=== PATIENT | male | born 1975 | race Caucasian/White ===

== ENCOUNTER 2017-09-03 08:29 | Outpatient (RCR) | payer OTHER, SELFPAY ==
--- NOTE | 2017-09-03 16:04 | HP.PTEVAL_ITS ---
Patient's Visit Information SAMRA GARCÍA is a 41 year old M referred to Physical Therapy by DO JANE Johnson with a diagnosis of L lateral meniscus tear. Date of Evaluation: 09/03/17 Physical Therapist: Tai Guerrero - Visit Plan Frequency: 1x/Week Duration: 4 Weeks Plan: Pt. given LLE strengthening including hip stabilizers to reduce stress applied to L knee with recreational activities. Pt. educated in changing knee positioning to reduce stress at knee with work activities. Pt. to complete on own as he is independent with HEP. Pt. to follow up with PT in 2-3 weeks if needed for progression exercsies or if not progressing with knee pain. - Subjective Subjective: Pt. is here for his initial evaluation with diagnosis of L lateral meniscal tear. He is a plesant 41 y.o. male who reports having L knee pain for ~ 1 year without a mechanism of injury. He was snow boarding and towards the end of the day it was really bad. He reports on and off pain for the last year. 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 Increases pain: deep squating, standing for long periods, running. Decreases pain- rest. Pt. has not trial ice or heat. He did have an xray that looked basically normal with some mild medial tibial femoral degenerative changes. He reports pain basically at lateral anterior joint line. He has not had an MRI at this point. He denies N/T in either LE, no occurance of his knee giving out or locking up. He does report popping at lateral aspect of his knee. He is hopeful to decrease symptoms in order to get back to running and his job with increased tolerance. - Pain Lateral Left knee Pain Intensity (Out of 10): 1 Pain Intensity Range: 0, 8 - Objective POSTURE: pt. has slight genu valgum positioning bilaterally. Pt. has normal foot positioning. He has normal RANDAL with equal wt. shifting. PALPATION: Pt. has pain at anterior/lateral joint line. He has no pain at fibular head or along IT band. He has no medial joint line pain or LCL pain. No popliteal fossa pain. No visible signs of edema or swelling. No temp to touch. NEUROLOGICAL: Pt. has normal sensation to light and sharp touch. Pt. has 2+ bilateral achilles and patellar DTR. Pt. is able to rise on heels and toes without issues or LOB, no signs of weakness. ROM: R knee 0-0-140deg NE. L knee 0-0-138deg, popping noted at ~30deg of flexion and pain at end range flexion. Pt. has normal HS length bilaterally and normal ankle and hip ROM no pain. MMT: Pt. has 5/5 LE strength bilaterally except- L hip ER/IR 4+/5, and L glute med 4+/5, hip ext 4+/5. GAIT: Pt. has normal gait pattern with TKE no pain noted this date. STAIRS: Pt. has normal recipriocal pattern, slight increase in lateral knee pain with descending. - Special Tests L Knee Miky - Meniscus: Positive L Knee Apley - Meniscus: Positive L Knee Disco Test - Meniscus: Positive L Knee Marilin - ACL: Negative L Knee Anterior Drawer - ACL: Negative L Knee Posterior Drawer - PCL: Negative L Knee Valgus - MCL: Negative L Knee Varus - LCL: Negative L Knee Patellar Apprehension - PFS: Negative Comments: Apley's postive with increased grind at lateral aspect, no pain at medial - Goals Goal 1:: Pt. to be I with HEP. Goal Time Frame: 2-4 Weeks Goal 2:: Pt. to have no pain with running and all recreational activties. Goal Time Frame: 2-4 Weeks Goal 3:: Pt. to complete all work activities withotu increase in L knee pain. Goal Time Frame: 2-4 Weeks - Rehabilitation Potential Physical Therapy Diagnosis: Pt. has signs and symptoms of L lateral meniscus tear. He has minimal weakness noted throughout knee and hip musculature. Pt. does have + testing with all grinding on the meniscus and with WBing pressure to lateral meniscus. He would benefit from PT to increase stability of hip IR/ER , and gradual progression to functional strengthening. Rehabilitation Potential: Fair - Anticipated Interventions Patient/Client Instruction: Educate patient on: Condition, Plan of Care, Risk Factors, Benefits of Fitness Program For the Purpose of:: To foster healthy habits, To facilitate caregiver knowledge , To improve self management, To prevent re-injury, To improve ability to perform tasks related to life management, To improve tolerance to ADL's Therapeutic Exercise to Include: Strength training, Power training, Endurance training, Balance training, Postural training, Passive ROM, Active ROM For the Purpose of:: To decrease pain, To improve nutrient delivery to tissue, To increase oxygenation perfusion, To improve muscle performance and motor function, To improve ability to perform ADL's, To increase tolerance to activity /condition/position, To improve performance and independence with ADL's, To decrease level of supervision to perform tasks, To improve health of tissue Thank you for the opportunity to evaluate your patient. For Medicare and Medicare HMO plans, please review the plan of care and approve it. It will need to be FAXED BACK to us at [phone] for Medicare purposes. Please let me know if there are questions or concerns regarding this plan of care. Physician Signature: Date:
--- NOTE | 2018-03-16 19:13 | HP.PTDCNRP_ITS ---
HP - Discharge Summary (1) - Patient Information SAMRA GARCÍA was seen in my office for initial evaluation on 09/03/17. The following Plan of Care was established for this patient: Initial Frequency: 1x/Week Initial Duration: 4 Weeks - Anticipated Interventions Patient/Client Instruction: Educate patient on: Condition, Plan of Care, Risk Factors, Benefits of Fitness Program For the Purpose of:: To foster healthy habits, To facilitate caregiver knowledge , To improve self management, To prevent re-injury, To improve ability to perform tasks related to life management, To improve tolerance to ADL's Therapeutic Exercise to Include: Strength training, Power training, Endurance training, Balance training, Postural training, Passive ROM, Active ROM For the Purpose of:: To decrease pain, To improve nutrient delivery to tissue, To increase oxygenation perfusion, To improve muscle performance and motor function, To improve ability to perform ADL's, To increase tolerance to activity /condition/position, To improve performance and independence with ADL's, To decrease level of supervision to perform tasks, To improve health of tissue This patient was last seen in our office 09/03/17. Pertinent comments regarding their Physical therapy will appear below: Pt. was seen for his L lateral meniscal tear. Pt. was given exercises to work on independently. Pt. wa to follow up with PT if needed. Pt. has yet to be back to PT and will be DC at this point in time. At this point I will be discontinuing this patient from physical therapy. I would be happy to see this patient again in the future if found appropriate by the physician. Thank you! Tai Guerrero
== END 2017-09-03 19:00 | disposition home or self-care (01) ==
LOC: PT 08:29
PROVIDERS: Visit Provider Orthopaedic Surgery
DX: S83.282D Other tear of lateral meniscus, current injury, left knee, subsequent encounter (principal)
CPT/HCPCS: 97110; 97162

== ENCOUNTER → 2017-10-18 13:10 | Outpatient (CLI) | payer OTHER, SELFPAY ==
--- NOTE | 2017-10-18 13:12 | MRI_ITS ---
STUDY: MRI LEFT KNEE REASON FOR EXAM: Left knee pain and stiffness for about one year, no specific injury. TECHNIQUE: Standardized fat and water weighted pulse sequences were obtained in all 3 orthogonal planes. COMPARISON: Radiographs 08/26/2017. FINDINGS: Normal medial meniscus. Normal hyaline cartilage of the medial femorotibial compartment. Normal medial femoral condyle and tibial plateau. Normal medial collateral ligamentous complex (MCL). Normal distal semimembranosus, gracilis and semitendinosus tendons. There is a small horizontal/oblique tear of the inferior articular surface of the body of the lateral meniscus (proton density coronal images 13, 14) with a parameniscal cyst (T2 coronal images 12-18). Normal hyaline cartilage of the lateral femorotibial compartment. Normal lateral femoral condyle and tibial plateau. Normal proximal tibiofibular articulation. Normal lateral collateral (fibular) ligament. Normal popliteus tendon. Normal biceps femoris tendon. Normal anterior cruciate ligament (ACL). Normal posterior cruciate ligament (PCL). Normal congruent patellofemoral articulation. Normal hyaline cartilage of the patellofemoral compartment. Normal medial and lateral patellar retinaculum. Normal visualized quadriceps tendon. Normal patellar tendon. Normal Hoffa's fat pad. There is no joint effusion. The soft tissues are unremarkable. The otherwise visualized osseous structures are unremarkable. MRI/Lower Ext Joint Only (Routine) IMPRESSION: Small lateral meniscal tear with parameniscal cyst. Electronically Signed: Andrews Wu MD at 14:28 EST Tel , Service support ,
== END ==
PROVIDERS: Visit Provider Orthopaedic Surgery
DX: S83.282D Other tear of lateral meniscus, current injury, left knee, subsequent encounter (principal); X58.XXXD Exposure to other specified factors, subsequent encounter
CPT/HCPCS: 73721

== ENCOUNTER → 2018-03-18 08:20 | Outpatient (CLI) | payer OTHER, SELFPAY ==
[2018-03-18 12:17] LABS: Absolute Lymphocyte Count 1.72 X10^3/ul (0.83-4.51); Absolute Neutrophil Count 2.6 X10^3/uL (2.0-7.7); Basophil# 0.02 X10^3/uL; Basophil% 0.4 % (0-1); Eosinophil# 0.18 X10^3/uL; Eosinophils% 3.7 % (0-5); Hematocrit 44.3 % (40-54); Hemoglobin 14.8 g/dl (13.0-16.5); Lymphocyte # 1.72 X10^3/ul (4.0); Lymphocyte % 35.3 % (19-41); Mean Corp Hgb Conc 33.4 g/gl (32-36); Mean Corpuscular Hgb 28.9 pg (27.0-32.0); Mean Corpuscular Volume 86.5 fL (80-94); Mean Platelet Vol. 10.2 fl (6.2-12.0); Monocyte# 0.35 X10^3/uL; Monocyte% 7.2 % (0-10); Neutrophil % 53.4 % (47-70); Platelet Count 179 K/mm3 (150-450); RBC Distribution Width SD 41.5 fl (35.1-43.9); Red Blood Count 5.12 M/mm3 (4.6-6.2); White Blood Count 4.9 K/mm3 (4.4-11.0)
[2018-03-18 12:25] LABS: POSITIVE COUNT NO; POSITIVE DIFFERENTIAL NO; POSITIVE MORPHOLOGY NO; Vitamin B12 406 pg/mL (211-911)
[2018-03-18 12:35] LABS: ALB/GLOB Ratio 1.2 RATIO (0.9-2.4); AST(SGOT) 24 U/L (15-37); Alanine Aminotransfer ALT/SGPT 35 U/L (16-61); Albumin, Serum 4.1 g/dL (3.2-5.0); Alkaline Phosphatase 75 U/L (45-117); Anion Gap 10 (5-15); BUN 17 mg/dL (7-18); BUN/Creat Ratio 15.5 RATIO (10-20); Chloride 105 mmol/L (98-107); EST Glomerular Filtration Rate 79 mL/min (>60); Est Glom Filt Rate - Afr Amer 95 mL/min (>60); Globulin 3.4 g/dL (2.2-4.2); Glucose 83 mg/dL (74-106); Potassium 4.1 mmol/L (3.5-5.1); Protein, Total 7.5 g/dL (6.4-8.2); Sodium Level 143 mmol/L (136-145); T4 Free Direct 0.81 ng/dL (0.76-1.46); Thyroid Stim Hormone (TSH) 2.27 uIU/mL (0.358-3.74)
== END ==
PROVIDERS: Family Provider Family Medicine; PCP Family Medicine; Visit Provider Family Medicine
DX: R20.2 Paresthesia of skin (principal); R03.0 Elevated blood-pressure reading, without diagnosis of hypertension; F41.8 Other specified anxiety disorders
CPT/HCPCS: 36415; 80053; 82607; 84439; 84443; 85025

== ENCOUNTER 2018-04-06 11:46 | Emergency (ER) | payer OTHER, SELFPAY ==
[2018-04-06 11:47] VITALS: BP 136/88; PULSE 84; RESP 18; TEMP 36.4; O2SAT 97; BMI 26.4
--- NOTE | 2018-04-06 11:57 | ED.VISSUMM ---
- ER Visit Summary Date of Service: 04/06/18 Chief Complaint: Injury right index finger History of Present Illness: The patient is a 42 M who is right-hand dominant presents with injury to right index finger. This occurred at work. He states his to be self-pay. He denies any paresthesia, anesthesia motors. Tetanus unknown. He has no sniffing a past medical history. He is a non-smoker. Physical Examination: Vitals are unremarkable. Blood pressure slightly elevated 136/88. Patient has evidence of trauma distal right index finger radial side. This is distal to the DIP joint. There is loss of tissue and devitalized tissue. The extensor in the side tendon is intact. The flexor digitorum superficialis and flexor digitorum profundus are intact. Sensations intact. There is no subungual hematoma. Capillary refill is normal. Test Results: None Emergency Department Course and Treatment: Wound care tetanus immunization/booster Treatment Plan: Outpatient follow-up with his PCP since this is not cleaned on Worker's Comp. and appropriate home-going instructions Disposition: Discharged home Impression: 1 x 2 cm skin avulsion distal right index finger radial side initial encounter This note was generated with [employer] dictation software. It may contain incorrect words, spelling, and punctuation that were not noted in review of the chart prior to signing ED Disposition - Plan for ED Patient: Disposition: Home or Assisted Living Chief Complaint: Laceration Instructions: ED Avulsion Dermal Referrals: Mann Chadwick MD [Primary Care Provider] - 2 Days for wound check
[2018-04-06] MEDS: Diphth,Pertuss(Acell),Tet Vac 0.5 ML Vial IM (12:01)
[2018-04-06 12:17] VITALS: BP 136/88; PULSE 74; RESP 18
== END 2018-04-06 12:19 | disposition home or self-care (01) ==
PROVIDERS: Emergency Provider Emergency Medicine; Family Provider Family Medicine; PCP Family Medicine
DX: S61.200A Unspecified open wound of right index finger without damage to nail, initial encounter (principal); F32.9 Major depressive disorder, single episode, unspecified; Z79.899 Other long term (current) drug therapy
CPT/HCPCS: 90471; 90715; 99283

== ENCOUNTER 2018-07-20 08:17 | Day surgery (SDC) | payer OTHER, SELFPAY ==
[2018-07-20] VITALS (7 sets, daily range): BP systolic 129–140; BP diastolic 74–92; PULSE 55–82; RESP 16–18; TEMP 36.1–36.9; O2SAT 94–100; BMI 26.6
[2018-07-20] MEDS: Cefazolin 2 GM in 0.9% Normal Saline 100 ML IV (10:15)
[2018-07-20] MEDS: Bupiv/Epi 0.5% Mpf 30 ML Vial (11:29)
[2018-07-20] MEDS: Mupirocin Ointment 22gm Tube 1 APPLIC (11:30)
--- NOTE | 2018-07-20 11:49 | PCM.DC.ORTHO ---
Discharge Diet: No Restrictions - ttwb right leg for 6 weeks, 0-30 rom of knee while seated, ankle pumps, ice , elevate toes above nose, follow up next week for dressing change and resetting of brace, follow up in 2 weeks for suture removal, call with concerns Discharge Activity: May Not Drive May shower in (days): 1 Ice area for (Minutes): 20 - Every hour while awake. Weight Bearing Status: Weight bearing as tolerated Keep extremity elevated above heart level: Operative Extremity Call your doctor if your incision/area has: Continuous Slow Oozing, Sudden Increased Bleeding, Increased Pain/ Swelling, Increased Redness, Foul Smelling Discharge Call your doctor if you observe: Fever of 101 or Higher, Coldness, Increased Pain, Numbness or Tingling, Change in Color, Calf discomfort Allergies/Adverse Reactions: Allergies No Known Allergies Allergy (Verified 07/18/18 15:52) Medications to take at Discharge sertraline 25 mg tablet 25 mg PO QDAY 08/26/17 Hydrocodone Bitart/Apap 5-325 [[place] 5MG-325MG] 1 - 2 tablet PO Q6H PRN PRN 5 Days #40 tablet 07/20/18 The following prescriptions were given: Hydrocodone Bitart/Apap 5-325 [[place] 5MG-325MG] 1 - 2 tablet PO Q6H PRN PRN 5 Days #40 tablet PRN Reason: Pain Primary Care Physician: Mann Chadwick MD [Primary Care Provider] - Test Results: Test results from this visit will be discussed in further detail at your follow-up appointment, if applicable. Please Follow Up With: Padmini Jenkins, - [phone]
--- NOTE | 2018-07-20 11:50 | PCM.OPRPT ---
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 Patient failed conservative treatment. Patient has had medial and lateral meniscus tears questionable on MRI as well as extensive synovitis in his anterior knee from climbing. Discuss options patient like proceed with left knee arthroscopic repair is indicated. Operative note Patient seen and examined preoperative holding area. Left knee was marked. Patient brought to the operating placed supine on the operating table. Signing, anesthesia, antibiotics were administered. Left knee was prepped and draped in usual sterile fashion with a tourniquet on his upper thigh. Marked out our portal placement anterior lateral medial and anterior medial portal placement. Left leg was then exsanguinated elevated tourniquet was raised her pressure to 50 torr. Timeout was performed. We created an anterior lateral portal with an 11 blade. Begin our diagnostic arthroscopy. We had a difficult time getting into the joint due to the extensive synovitis that was in his anterior lateral anteromedial gutters. We created anterior medial portal under direct visualization. We then probed the medial meniscus there is a posterior horn root tear just at the capsule. This was repaired with 2 FasT-Fix device 360 FasT-Fix [employer] devices after rasping the edges of the tear initially. The ACL was stretched out and partially torn but had scarred in. The PCL was present within the notch. The medial portal femoral condyle medial tibial plateau were intact and stable probing. The lateral femoral condyle lateral tibial plateau were intact stable probing. There was no obvious flap tear of the mid substance of the lateral meniscus which was debrided and removed with accommodation of a shaver and a basket. We also decompressed the cyst from inside out and incised in technique using an 18-gauge spinal needle. We then used to reverse curved 360 FasT-Fix devices and did a sandwich stitch and understood that the tear would not propagate further. Please note that prior to this we had to perform an extensive synovectomy and again anterior medial and anterolateral as we had difficulty visualizing the joint. The patellofemoral joint was intact stable probing. The knee was then irrigated with copious amounts of sterile saline. Tourniquet was deflated. Sterile dressings and a brace was applied to the left knee. Patient tolerated procedure well there are no complication transferred to recovery room in stable condition. Next Postoperative note next Toe-touch weightbearing for 6 weeks 0-30 degrees Locked in extension during ambulation and at night Call with increased pain numbness tingling or further issues arise Dragon disclaimer [facility] pharmacy has prescriptions Dragon disclaimer This note was generated with [employer] dictation software. It may contain incorrect words, spelling, and punctuation that were not noted in checking the note before signing.
--- NOTE | 2018-07-20 11:55 | OP.PCM_ITS ---
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 Patient failed conservative treatment. Patient has had medial and lateral meniscus tears questionable on MRI as well as extensive synovitis in his anterior knee from climbing. Discuss options patient like proceed with left knee arthroscopic repair is indicated. Operative note Patient seen and examined preoperative holding area. Left knee was marked. Patient brought to the operating placed supine on the operating table. Signing, anesthesia, antibiotics were administered. Left knee was prepped and draped in usual sterile fashion with a tourniquet on his upper thigh. Marked out our portal placement anterior lateral medial and anterior medial portal placement. Left leg was then exsanguinated elevated tourniquet was raised her pressure to 50 torr. Timeout was performed. We created an anterior lateral portal with an 11 blade. Begin our diagnostic arthroscopy. We had a difficult time getting into the joint due to the extensive synovitis that was in his anterior lateral anteromedial gutters. We created anterior medial portal under direct visualization. We then probed the medial meniscus there is a posterior horn root tear just at the capsule. This was repaired with 2 FasT-Fix device 360 FasT-Fix [employer] devices after rasping the edges of the tear initially. The ACL was stretched out and partially torn but had scarred in. The PCL was present within the notch. The medial portal femoral condyle medial tibial plateau were intact and stable probing. The lateral femoral condyle lateral tibial plateau were intact stable probing. There was no obvious flap tear of the mid substance of the lateral meniscus which was debrided and removed with accommodation of a shaver and a basket. We also decompressed the cyst from inside out and incised in technique using an 18-gauge spinal needle. We then used to reverse curved 360 FasT-Fix devices and did a sandwich stitch and understood that the tear would not propagate further. Please note that prior to this we had to perform an extensive synovectomy and again anterior medial and anterolateral as we had difficulty visualizing the joint. The patellofemoral joint was intact stable probing. The knee was then irrigated with copious amounts of sterile saline. Tourniquet was deflated. Sterile dressings and a brace was applied to the left knee. Patient tolerated procedure well there are no complication transferred to recovery room in stable condition. Next Postoperative note next Toe-touch weightbearing for 6 weeks 0-30 degrees Locked in extension during ambulation and at night Call with increased pain numbness tingling or further issues arise Dragon disclaimer [facility] pharmacy has prescriptions Dragon disclaimer This note was generated with [employer] dictation software. It may contain incorrect words, spelling, and punctuation that were not noted in checking the note before signing.
[2018-07-20] MEDS: HYDROcodone Bitartrate/Apap 5/325 Tablet PO (12:45)
== END 2018-07-20 15:46 | disposition home or self-care (01) ==
LOC: SDC 08:18 → AC 08:19
PROVIDERS: Family Provider Family Medicine; PCP Family Medicine; Referring Provider Orthopaedic Surgery; Visit Provider Orthopaedic Surgery
PROC: (CPT 29870; principal; 2018-07-20 09:40)
DX: S83.281A Other tear of lateral meniscus, current injury, right knee, initial encounter (principal); S83.241A Other tear of medial meniscus, current injury, right knee, initial encounter; X58.XXXA Exposure to other specified factors, initial encounter; M65.88 Other synovitis and tenosynovitis, other site
CPT/HCPCS: 29876; 29881; 29883; J7120; J2405

== ENCOUNTER 2018-10-17 15:30 | Outpatient (RCR) | payer OTHER, SELFPAY ==
[2018-08-02 09:48] VITALS: BMI 26.6
--- NOTE | 2018-08-11 14:13 | HP.PTEVAL_ITS ---
Patient's Visit Information SAMRA GARCÍA is a 42 year old M referred to Physical Therapy by MATT Spencer with a diagnosis of POST OP LEFT KNEE MEDIAL AND LATERAL MENISCUS REPAIR. Date of Evaluation: 08/11/18 Physical Therapist: Phoenix Carroll PT, Cert MDT, OCS - Visit Plan Frequency: 2-3x /Week Duration: 3 Months Plan: PATIENT UNDERWENT S/P MEDAIL/LATERAL MENISUS REPAIR ON 07/20. CRUTCHES TTWB WITH KNEE BRACE LOCKED ,OKAY TO UNLOCK 70 DEGREES AT REST 6WEEKS. PROGRESS ROM PER GUIDLINES. SEE GUIDELINES FOR MENISCUS REPAIR :CKC 7- 9WEEKS < 40, < 70 DEGREES 10-15WEEKS - Subjective Findings: This 42 y/o male presents to physical therapy with s/o left knee medial and lateral meniscus repair on 07/20/[address] Felix. Patient d/c with NWB Left knee for 6weeks,brace locked when when walking,unlock 70 degrees at rest. 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 Patient sleeping okay. Patient tried PT prior to surgery. Did have MRI showed meniscus.Patient surgery affects QOL and return to job demnads. SOCAIL: 4 CHILDREN. HOBBIES: running. 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 INSCION: well approximate. GAIT: ambulates with brace knee locked in extension with crutches. EDEMA: joint line 16cm2. QUAD: 6 above knee 18 cm2. AROM:3-70 Degrees supine knee flexiion. -HOMMANS. MMT: NT quads/hams. QUAD SET: fair+ - Goals Goal 1:: Independant in HEP Goal Time Frame: 12-16 Weeks Goal 2:: Patient to ambulate with normal gait pattern Goal Time Frame: 12-16 Weeks Goal 3:: Patient to improve AROM left knee 0-135 degrees to improve function Goal Time Frame: 12-16 Weeks Goal 4:: Patient increase strength quads/hams /hip 5/5 to improve function. Goal Time Frame: 12-16 Weeks Goal 5:: Patient to improve LFES score by 20 points or greater to improve QOL. Goal Time Frame: 12-16 Weeks Goal 6:: Patient to improve ablity to return to work and sport simulation activities. Goal Time Frame: 12-16 Weeks - Rehabilitation Potential Physical Therapy Diagnosis: Patient underwent s,/p medial and lateral knee meniscus repair with decrease ROM ,strength, gait ,balance impairs ADLS' and return to work thus benifit from skilled PT Rehabilitation Potential: Good - Anticipated Interventions Patient/Client Instruction: Educate patient on: Condition, Plan of Care For the Purpose of:: To decrease pain, To increase ROM, To improve muscle performance and motor function, To improve ability to perform ADL's, To increase tolerance to activity/condition/position, To improve ability of physical actions for home/community/work/leisure, To improve health of tissue, To decrease soft tissue restriction, To increase flexibility/ROM, To improve endurance, To improve balance, To improve ability to perform tasks related to life management Therapeutic Exercise to Include: Strength training, Flexibilty training, Passive ROM, Active ROM Comment: SEE GUIDELINES SEE MENISCUS REPAIR For the Purpose of:: To decrease pain, To increase ROM, To improve muscle performance and motor function, To increase tolerance to activity/cond ition/position, To improve ability of physical actions for home/community/work/leisure, To improve gait and locomotor functions, To decrease soft tissue restriction, To increase flexibility/ROM, To improve balance, To assume or resume ADL's, To improve ability to perform tasks related to life management TENS: Yes IF ES: Yes Cryotherapy (ice pack, ice massage): Yes For the Purpose of:: To decrease pain, To decrease swelling/inflammation, To improve nutrient delivery to tissue, To increase oxygenation perfusion, To improve health of tissue, To decrease soft tissue restriction Thank you for the opportunity to evaluate your patient. For Medicare and Medicare HMO plans, please review the plan of care and approve it. It will need to be FAXED BACK to us at [phone] for Medicare purposes. For Medicare only, by signing this I certify the plan of care. Please let me know if there are questions or concerns regarding this plan of care. Physician Signature: Date:
--- NOTE | 2019-01-25 14:10 | HP.PTDCSUM ---
HP - PT D/C Summary It has been my pleasure to treat SAMRA GARCÍA under orders from MATT Spencer, for the diagnosis of POST OP LEFT KNEE MEDIAL AND LATERAL MENISCUS REPAIR for a total of 14 visit(s). Discharge Date: 10/17/18 Please see the following information for a summary of their discharge status. - Subjective Subjective: Doing well.. no pain . RTW. Dr said doing great . Dont need to come back. - Pain Left Knee Pain Intensity (Out of 10): 0 - Overall Improvement % Improvement: 90 - Objective Objective/Function: AROM: 0-140 DEGREES. GAIT: normal radhika. MMT: quads/hams/hip 4/5. FLEXABLITY: hams WFL - Goals Goal 1:: Independant in HEP Goal Progress: Goal Met Goal 2:: Patient to ambulate with normal gait pattern Goal Progress: Goal Met Goal 3:: Patient to improve AROM left knee 0-135 degrees to improve function Goal Progress: Goal Met Goal 4:: Patient increase strength quads/hams /hip 5/5 to improve function. Goal Progress: Progressing Goal 5:: Patient to improve LFES score by 20 points or greater to improve QOL. 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 Goal Progress: Progressing - Plan Plan: D/C TO HEP - D/C Information If there are questions or concerns regarding this patient's physical therapy, please feel free to call me at [phone]. Thank you for the referral of this patient. Sincerely, Phoenix Carroll, PT, Cert MDT, OCS
== END 2018-10-17 19:00 | disposition home or self-care (01) ==
LOC: PT 15:30
PROVIDERS: Family Provider Family Medicine; PCP Family Medicine; Referring Provider Physician Assistant; Visit Provider Physician Assistant
DX: Z98.890 Other specified postprocedural states (principal)
CPT/HCPCS: 97110; 97161; 97530

== ENCOUNTER → 2019-10-03 | Outpatient (CLI) | payer OTHER, SELFPAY ==
[2018-10-10 15:32] VITALS: BMI 26.6
[2019-10-03 19:24] LABS: Carboxyhemoglobin Frac (CO) 12.2 % (0.0-1.5)
== END | disposition home or self-care (01) ==
PROVIDERS: PCP Family Medicine
DX: Z77.29 Contact with and (suspected) exposure to other hazardous substances (principal)
CPT/HCPCS: 82375

== ENCOUNTER → 2021-06-30 | Outpatient (CLI) | payer OTHER, SELFPAY | END | disposition home or self-care (01) | LOC: LABSPEC 15:08 | PROVIDERS: PCP Family Medicine; Visit Provider Family Medicine | DX: Z20.828 Contact with and (suspected) exposure to other viral communicable diseases (principal) | CPT/HCPCS: 87635; U0005; U0003 ==

== ENCOUNTER 2021-08-20 14:12 | Outpatient (CLI) | payer OTHER, SELFPAY | END 2021-08-20 23:59 | disposition short-term general hospital (02) | LOC: LABSPEC 14:13 | PROVIDERS: PCP Family Medicine; Visit Provider Physician Assistant | DX: U07.1 COVID-19 (principal) | CPT/HCPCS: 87635; U0003; U0005 ==

== ENCOUNTER → 2022-03-30 | Outpatient (CLI) | payer OTHER, SELFPAY ==
--- NOTE | 2022-03-30 13:23 | RAD_ITS ---
EXAM: XR LEFT ANKLE COMPLETE, 3 OR MORE VIEWS CLINICAL INDICATION: PAIN/INJURY TECHNIQUE: Frontal, lateral and oblique views of the left ankle. This report was created using [employer] report generation technology. COMPARISON: None. FINDINGS: BONES/JOINTS: There is an enthesophyte involving the posterior superior calcaneus at the site of insertion of the Achilles tendon. No acute fracture. No subluxation. Normal alignment. Preservation of the joint space. No sclerotic or destructive changes observed. SOFT TISSUES: Unremarkable. No soft tissue swelling or gas. No radiopaque foreign body. RAD/Ankle min 3 Views IMPRESSION: No acute findings in the left ankle. Electronically Signed: Brayan Isbell MD at 15:04 EDT ,
== END | disposition home or self-care (01) ==
LOC: MTRAD 13:21
PROVIDERS: PCP Family Medicine; Referring Provider Family Medicine; Visit Provider Family Medicine
DX: M25.572 Pain in left ankle and joints of left foot (principal)
CPT/HCPCS: 73610

== ENCOUNTER → 2023-06-28 | Outpatient (CLI) | payer OTHER, SELFPAY ==
[2023-06-28 15:30] LABS: Absolute Lymphocyte Count 1.85 X10^3/uL (0.83-4.51); Absolute Neutrophil Count 4.8 X10^3/uL (2.0-7.7); Basophil# 0.04 X10^3/uL; Basophil% 0.6 % (0-1); Eosinophils% 1.4 % (0-5); Hematocrit 43.7 % (40-54); Hemoglobin 14.6 g/dL (13.0-16.5); Lymphocyte # 1.85 X10^3/ul (0.83-4.51); Lymphocyte % 25.7 % (19-41); Mean Corp Hgb Conc 33.4 g/dL (32-36); Mean Corpuscular Hgb 28.5 pg (27.0-32.0); Mean Corpuscular Volume 85.2 fL (80-94); Mean Platelet Vol. 10.1 fl (6.2-12.0); Monocyte# 0.38 X10^3/uL; Monocyte% 5.3 % (0-10); NRBC Flagged by Analyzer 0 % (0-5); Neutrophil # 4.82 X10^3/uL (2.7-7.7); Neutrophil % 66.7 % (47-70); Platelet Count 214 K/mm3 (150-450); RBC Distribution Width CV 12.4 % (11.6-14.6); RBC Distribution Width SD 38.7 fl (35.1-43.9); Red Blood Count 5.13 M/mm3 (4.6-6.2); White Blood Count 7.2 K/mm3 (4.4-11.0)
[2023-06-28 15:45] LABS: ALB/GLOB Ratio 1.2 RATIO (0.9-2.4); AST(SGOT) 19 U/L (15-37); Alanine Aminotransfer ALT/SGPT 29 U/L (16-61); Albumin, Serum 4.1 g/dL (3.2-5.0); Alkaline Phosphatase 69 U/L (45-117); Anion Gap 4 (5-15); BUN 16 mg/dL (7-18); BUN/Creat Ratio 15.1 RATIO (10-20); Calcium,Total 8.8 mg/dL (8.5-10.1); Chloride 107 mmol/L (98-107); Cholesterol 207 mg/dL (200); Creatinine, Serum 1.06 mg/dL (0.70-1.30); EST Glomerular Filtration Rate 80 mL/min (>60); Est Glom Filt Rate - Afr Amer 97 mL/min (>60); Globulin 3.3 g/dL (2.2-4.2); Glucose 114 mg/dL (74-106); High Density Lipoprotein 44 mg/dL; Protein, Total 7.4 g/dL (6.4-8.2); Sodium Level 138 mmol/L (136-145); Triglycerides 252 mg/dL; Very Low Density Lipoprotein 50 mg/dL (5-40); Vitamin D,25 Hydroxy 33.8 ng/mL
== END | disposition home or self-care (01) ==
LOC: BIMLAB 13:45
PROVIDERS: PCP Internal Medicine; Referring Provider Internal Medicine; Visit Provider Internal Medicine
DX: Z00.00 Encounter for general adult medical examination without abnormal findings (principal); Z13.6 Encounter for screening for cardiovascular disorders; Z12.11 Encounter for screening for malignant neoplasm of colon
CPT/HCPCS: 36415; 80053; 80061; 82306; 85025

== ENCOUNTER → 2023-07-16 | Outpatient (CLI) | payer OTHER, SELFPAY ==
[2023-07-16 12:26] LABS: Cholesterol 212 mg/dL (200); High Density Lipoprotein 52 mg/dL; Triglycerides 66 mg/dL; Very Low Density Lipoprotein 13 mg/dL (5-40)
== END | disposition home or self-care (01) ==
LOC: BIMLAB 08:41
PROVIDERS: PCP Internal Medicine; Referring Provider Internal Medicine; Visit Provider Internal Medicine
DX: E78.2 Mixed hyperlipidemia (principal)
CPT/HCPCS: 36415; 80061

== ENCOUNTER → 2025-02-02 | Outpatient (CLI) | payer OTHER, SELFPAY ==
--- OUTSIDE RECORDS SUMMARY | 2025-02-02 08:25 | XMS RPT_ITS | CCD ---
Author Organization [facility] Care Team Providers Care Biodiesel Product Development Manager Name Role Phone Dr. Mann Chadwick Primary Care Provider Unavaila Dr. Mann Muro Referring Provider Unavailable Dr. Danielle Johnson Attending Provider Alex SHERIFF, Dr. Santos Primary Care Provider [phone] Alex SHERIFF, Dr. Santos Attending Provider Alex SHERIFF, Dr. Santos Referring Provider Danielle Johnson Referring Unavailable Danielle Johnson Attending Unavailable Danielle Johnson Primary Care Unavailable Allergies Allergy Classification Reported Allergen(s) Allergy Type Date of Onset Reaction(s) Facility (3 sources) animal dander; Translations: [animal dander] Allergy to substance 05-24-2023 Other [facility] Comment on above: SNEEZING, ITCHY EYES , RUNNY NOSE Medications Current Medications Medication Drug Class(es) Dates Sig (Normalized) Sig (Original) cholecalciferol 0.025 mg oral capsule (2 sources) Vitamin D Start: 06-28-2023 take 1 capsule by mouth once daily Cholecalciferol (Vitamin D3) 25 mcg (1,000 unit) capsule Active 25 ug PO DAILY June 28, 2023 1:00am sertraline 25 mg oral tablet (9 sources) Serotonin Reuptake Inhibitor Start: 01-29-2025 Sertraline (Zoloft) 25 mg tablet Active 12.5 mg PO daily January 29, 2025 9:23am Start: 01-29-2025 End: 01-29-2025 take 1 tablet by mouth once daily Sertraline (Zoloft) 25 mg tablet Discontinued 25 mg PO daily January 29, 2025 12:00am January 29, 2025 9:31am Start: 05-24-2023 End: 01-24-2024 take 1 tablet by mouth once daily Sertraline 25 mg tablet Discontinued 25 mg PO DAILY October 28, 2023 11:17am January 24, 2024 9:02am Start: 08-26-2017 End: 01-18-2023 take 1 tablet by mouth once daily Sertraline (Zoloft) 25 mg tablet Discontinued 25 mg PO daily August 26, 2017 1:00am January 18, 2023 9:06am Completed/Discontinued Medications Medication Drug Class(es) Dates Sig (Normalized) Sig (Original) acetaminophen 325 mg / HYDROcodone bitartrate 5 mg oral tablet (3 sources) Opioid Agonist Start: 07-20-2018 End: 07-25-2018 take 1-2 tablets by mouth every six hours at mealtime as needed for pain Hydrocodone-Acetami nophen 1 TABLET tablet Discontinued 1 - 2 {tbl} PO EVERY 6 HOURS NEEDED as needed for Pain 40 July 20, 2018 1:00am July 24, 2018 1:00am July 25, 2018 1:08am take 1-2 tabs by mouth with food, stop all tylenol and other narcs Start: 07-20-2018 End: 07-25-2018 take 1-2 tablets by mouth every six hours at mealtime Hydrocodone-Acetaminophen Discontinued 1 - 2 TABLET PO EVERY 6 HOURS NEEDED 40 July 20, 2018 12:00am July 25, 2018 12:08am take 1-2 tabs by mouth with food, stop all tylenol and other narcs Problems Problem Classification Problem Date Documented Da te Episodic/Chronic Anxiety disorders (4 sources) Anxiety; Translations: [Anxiety disorder, unspecified] 01-18-2023 Chronic Disorders of lipid metabolism (2 sources) Mixed hyperlipidemia; Translations: [Mixed hyperlipidemia] Onset: 01-29-2025 01-29-2025 Chronic Headache; including migraine (2 sources) Migraine; Translations: [Migraine, unspecified, not intractable, without status migrainosus] 01-18-2023 Chronic Immunizations and screening for infectious disease (1 source) Encounter for immunization; Translations: [Need for prophylactic vaccination and inoculation against unspecified single disease] 05-24-2023 Episodic Mood disorders (2 sources) Depressive disorder; Translations: [Depression] 01-18-2023 Chronic Nutritional deficiencies (2 sources) Vitamin D deficiency; Translations: [Vitamin D deficiency, unspecified] Onset: 01-29-2025 01-29-2025 Chronic Other nutritional; endocrine; and metabolic disorders (1 source) Overweight; Translations: [Overweight] 05-24-2023 Episodic Other nutritional; endocrine; and metabolic disorders (1 source) Body mass index 25-29 - overweight; Translations: [Overweight] 01-29-2025 Episodic Other screening for suspected conditions (not mental disorders or infectious disease) (1 source) Patient encounter status; Translations: [Encounter for screening for malignant neoplasm of colon] 01-29-2025 Episodic Results Test Name Value Interpretation Reference Range Facility Internal Medicine Office Vis iton 01-25-2025 Internal Medicine Office Visit [facility] [address] [place] [address] [place] [address] OFFICE VISIT Date of Service: 01/29/25 MR#: [id number] Acct: [id number] Name: SAMRA GARCÍA Rep #: [id number] : 1975 Provider: Dr. Danielle da silva MD Age/Sex: 49/M Location: [facility] [place] Status: Signed Intake Vital Signs 01/24/24 09:04 01/29/25 09:04 Height 6 ft 6 ft Weight: 202 lb BMI 27.3 BP 128/82 H Blood Pressure Location Lt brachial Position Sitting Respiration 18 Pulse 57 L Pulse Source Monitor Temp 97.8 F Temp Source Temporal Pulse Oximetry (%) 97 Oxygen Delivery Method room air Intake Visit Reasons: yearly Chief Complaint: Anxiety Is patient in pain?: No Allergies animal dander Allergy (Intermediate, Verified 01/29/25 09:05) Other Medications ???Medication ???Instructions ???Recorded ???Confirmed ???Type cholecalciferol (vitamin D3) 25 25 mcg PO DAILY #1 cap 06/28/23 Rx mcg (1,000 unit) capsule sertraline 25 mg tablet (Zoloft) 12.5 mg (1/2 x 25 mg) PO QDAY #45 01/29/25 01/29/25 Rx tabs PFSH Medical History Seasonal allergies Anxiety Depression Migraine Skull fracture Surgical History History of lateral meniscus repair of left knee Family History Father Hypertension Grandfather Colon cancer Uncle Cancer PROSTATE Sister Esophageal cancer Social History (Updated 01/29/25 @ 09:[address] 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 pets and animals: Yes (1) pets and animals: dog(s) sexually active: Yes Smoking Status: Never smoker Electronic Cigarette Use: not used second hand exposure: No alcohol intake: current alcohol intake frequency: holidays/special occasions only Alcohol type: beer substance use type: does not use caffeine: Yes (1) Type: coffee what type of physical activity do you participate in: running frequency: 3-4 times per week duration: 30-45 minutes/day seatbelt use: always do you feel safe at home: Yes Questionnaire PQH-9 BMS Over the last 2 weeks, how often have you been bothered by any of the following problems? 1. Little interest or pleasure in doing things: not at all 2. Feeling down, depressed, or hopeless: several days 3. Trouble falling or staying asleep, or sleeping too much: more than half the days 4. Feeling tired or having little energy: several days 5. Poor appetite or overeating: not at all 6. Feeling bad about yourself - or that you are a failure or have let yourself and your family down: several days 7. Trouble concentrating on things, such as reading the newspaper or watching television: not at all 8. Moving or speaking so slowly that other people could have noticed? - Or the opposite - being so fidgety or restless that you have been moving around a lot more than usual: not at all 9. Thoughts that you would be better off or of hurting yourself in some way: not at all Total score: 5 Source: Developed by Drs. Thomas Bartholomew, Michaelle Cortez, Ortiz Link and colleagues, with an educational sofía from [employer]. MAGDY-7 BMS MAGDY-7 Feeling nervous, anxious, or on edge: 1 = Several days Not being able to stop or control worryin = Several days Worrying too much about different things: 0 = Not at all Trouble relaxin = Not at all Being so restless that it is hard to sit still: 0 = Not at all Becoming easily annoyed or irritable: 1 = Several days Feeling afraid as if something awful might happen: 0 = Not at all Total MAGDY-7 score (0-4 normal; 5-9 mild; 10-14 moderate; 15-21 severe): 3 Source: Developed by Drs. Thomas Bartholomew, Michaelle Cortez, Ortiz Link and colleagues, with an educational sofía from [employer]. HPI HPI Chief Complaint: Anxiety Details: SAMRA GARCÍA, is a 49 M who presents to the office today for a follow up. He never did his blood work or screening as previously ordered, but would like to have them reordered. He isn't due for any immunizations. He doesn't smoke and does need refills. He is eating healthy and staying active. He reports his mental health has been doing alright. He states he started the zoloft a couple of months ago. He states he only takes 12.5mg and feels that has helped him sleep. He reports when he was not taking the medication, he felt more agitated and didn't sleep as well. He states he started the medication after his requested he take it. He denies any current concerns and denies any thoughts of suicide. His weight has been stable. He has no (more content not included)... Normal [facility] Absolute lymphocyte countOrd ered By: Danielle Johnson on 06-28-2023 Lymphocytes Auto (Unsp spec) [#/Vol] 1.85 10*3/uL 0.83-4.51 [facility] Basophil percentageOrdered B y: Danielle Johnson on 06-28-2023 Basophils/100 WBC (Bld) 0.6 % 0-1 [facility] Bilirubin [Mass/Vol] 0.60 mg/dL 0.20-1.00 [facility] Comment on above: For patients on eltr ombopag therapy, use of Dimension Dorothy TBIL is not recommended. Chloride [Moles/Vol] 107 mmol/L 98-107 [facility] Cholesterol [Mass/Vol] 207 mg/dL <200 [facility] Comment on above: <200 mg/dL Desirable 200-240 mg/dL Borderline >240 mg/dL High Risk Eosinophils/100 WBC (Bld) 1.4 % 0-5 [facility] Glucose [Mass/Vol] 114 mg/dL 74-106 [facility] Comment on above: Fasting Glucose resu lt from 100 to 125 mg/dL suggests IMPAIRED HOMEOSTASIS per A.D.A. criteria. Neutrophils (Bld) [#/Vol] 4.8 10*3/uL 2.0-7.7 [facility] Neutrophils/100 WBC (Bld) 66.7 % 47-70 [facility] Potassium [Moles/Vol] 4.0 mmol/L 3.5-5.1 [facility] Protein [Mass/Vol] 7.4 g/dL 6.4-8.2 [facility] Sodium [Moles/Vol] 138 mmol/L 136-145 [facility] Triglyceride [Mass/Vol] 252 mg/dL <199 [facility] Comment on above: The drugs N-Acetylcy steine and Metamizole may falsely depress this assay.Serum Triglycerides Reference Interval Normal <150 mg/dL Borderline high 150 - 199 mg/dL High 200 - 499 mg/dL Very High > or = 500 mg/dL WBC (Bld) [#/Vol] 7.2 10*3/uL 4.4-11.0 [facility] Blood erythrocytes count (nu mber/volume)Ordered By: Danielle Johnson on 06-28-2023 RBC (Bld) [#/Vol] 5.13 10*6/uL 4.6-6.2 [facility] Blood hemoglobin measurement (mass/volume)Ordered By: Danielle Johnson on 06-28-2023 Hemoglobin (Bld) [Mass/Vol] 14.6 g/dL 13.0-16.5 [facility] Blood lymphocytes/100 leukoc ytesOrdered By: Danielle Johnson on 06-28-2023 Lymphocytes/100 WBC (Bld) 25.7 % 19-41 [facility] Blood monocytes/100 leukocyt esOrdered By: Danielle Johnson on 06-28-2023 Monocytes/100 WBC (Bld) 5.3 % 0-10 [facility] Blood platelet mean volumeOr dered By: Danielle Johnson on 06-28-2023 Platelet mean volume (Bld) [Entitic vol] 10.1 fL 6.2-12.0 [facility] Determination of erythrocyte mean corpuscular volume (MCV)Ordered By: Danielle Johnson on 06-28-2023 MCV (RBC) [Entitic vol] 85.2 fL 80-94 [facility] Hematocrit Auto (Bld) [Volum e fraction]Ordered By: Danielle Johnson on 06-28-2023 Hematocrit (Bld) [Volume fraction] 43.7 % 40-54 [facility] Laboratory - Chemistry and C hemistry - challengeOrdered By: Danielle Johnson on 06-28-2023 ALP [Catalytic activity/Vol] 69 U/L 45-117 [facility] ALT [Catalytic activity/Vol] 29 U/L 16-61 [facility] CO2 [Moles/Vol] 27.0 mmol/L 21.0-32.0 [facility] Globulin (S) [Mass/Vol] 3.3 g/dL 2.2-4.2 [facility] Urea nitrogen/Creatinine [Mass ratio] 15.1 mg/mg 10-20 [facility] - Hematology and Cell countsOrdered By: Danielle Johnson on 06-28-2023 Erythrocyte distribution width (RBC) [Entitic vol] 38.7 fL 35.1-43.9 [facility] Erythrocyte distribution width (RBC) [Ratio] 12.4 % 11.6-14.6 [facility] Immature granulocytes/100 WBC (Bld) 0.300 % 0.0-0.9 [facility] Comment on above: IG% - Immature Granu locytes (promyelocytes, myelocytes and metamyelocytes) > 1% indicates that a LEFT SHIFT is Present. MCH (RBC) [Entitic mass] 28.5 pg 27.0-32.0 [facility] Nucleated RBC/100 WBC (Bld) [Ratio] 0 % 0-[address] [facility] Auto (RBC) [Mass/Vol]Or dered By: Danielle Johnson on 06-28-2023 MCHC (RBC) [Mass/Vol] 33.4 g/dL 32-36 [facility] No Panel InformationOrdered By: Danielle Johnson on 06-28-2023 Estimated GFR (MDRD) Amer 97 mL/min >60 [facility] Comment on above: GFR Calc Estimated GFR (MDRD) Non-Af Amer 80 mL/min >60 [facility] Comment on above: Non- GFR Calc Vitamin D 25-Hydroxy 33.8 ng/mL [facility] Comment on above: Vitamin D 25(OH) Sta tus Range Deficiency <20 ng/mL (50nmol/L) Insufficiency 20 - 30 ng/mL (50 - 75 nmol/L) Sufficiency 30 - 100 ng/mL (75 - 250 nmol/L) Toxicity >100 ng/mL (>250 nmol/L) Platelets bldOrdered By: Jason Johnson on 06-28-2023 Platelets (Bld) [#/Vol] 214 10*3/uL 150-450 [facility] Serum or plasma albumin peter urement (mass/volume)Ordered By: Danielle Johnson on 06-28-2023 Albumin [Mass/Vol] 4.1 g/dL 3.2-5.0 [facility] Serum or plasma albumin/glob ulin mass ratioOrdered By: Danielle Johnson on 06-28-2023 Albumin/Globulin [Mass ratio] 1.2 {ratio} 0.9-2.4 [facility] Serum or plasma calcium peter urement (mass/volume)Ordered By: Danielle Johnson on 06-28-2023 Calcium [Mass/Vol] 8.8 mg/dL 8.5-10.1 [facility] Serum or plasma cholesterol in HDL measurement (mass/volume)Ordered By: Danielle Johnson on 06-28-2023 Cholesterol in HDL [Mass/Vol] 44 mg/dL >40 [facility] Comment on above: The drugs N-Acetylcy steine and Metamizole may falsely depress this assay. Reference Range HDL <40 mg/dL Low HDL Cholesterol HDL >or= 60 mg/dL High HDL Cholesterol Serum or plasma cholesterol in VLDL measurement (mass/volume)Ordered By: Danielle Johnson on 06-28-2023 Cholesterol in VLDL [Mass/Vol] 50 mg/dL 5-40 [facility] Serum or plasma creatinine m easurement (mass/volume)Ordered By: Danielle Johnson on 06-28-2023 Creatinine [Mass/Vol] 1.06 mg/dL 0.70-1.30 [facility] Comment on above: The validity of the calculated GFR & GFRAA in patients over 70 years has not been determined. Clinical correlation is essential. Serum or plasma low density lipoprotein (LDL) cholesterol measurement (mass/volume)Ordered By: Danielle Johnson on 06-28-2023 Cholesterol in LDL [Mass/Vol] 113 mg/dL 0-130 [facility] Serum or plasma urea nitroge n measurement (mass/volume)Ordered By: Danielle Johnson on 06-28-2023 Urea nitrogen [Mass/Vol] 16 mg/dL 7-18 [facility] Thin prep Papanicolaou smear with manual screeningOrdered By: Danielle Johnson on 06-28-2023 Thin prep Papanicolaou smear with manual screening 19 U/L 15-37 [facility] Thin prep Papanicolaou smear with manual screening 4 5-15 [facility] COon 10-04-2019 Carbon Monoxide Level See Comments Normal A [facility] Comment on above: Result Comment: See separate report. Called result to Vaishnavi in ER @20:14 10/03/19 ED Performed By: #### C O #### Jossy [address] [address] Vital Signs Date Time Vital Sign Value Performing Clinician Kenneth marroquin 01-29-2025 09:040400 Body height 182.[address] Danielle Johnson MD Work Phone: [facility] 01-29-2025 09:040400 Body mass index (BMI) [Ratio] 27.3 kg/m2 Dr. Danielle Johnson MD Work Phone: [facility] 01-29-2025 09:04-0400 Body temperature 97.8 [degF] Dr. Danielle Johnson MD Work Phone: [facility] 01-29-2025 09:04-0400 Body weight 91.[address] Danielle Johnson MD Work Phone: [facility] 01-29-2025 09:04-0400 Diastolic blood pressure 82 mm[Hg] Dr. Danielle Johnson MD Work Phone: [facility] 01-29-2025 09:04-0400 Heart rate 57 /min Dr. Danielle Johnson MD Work Phone: [facility] 01-29-2025 09:04-0400 Respiratory rate 18 /min Dr. Danielle Johnson MD Work Phone: [facility] 01-29-2025 09:04-0400 SaO2% (BldA) [Mass fraction] 97 % Dr. Danielle Johnson MD Work Phone: [facility] 01-29-2025 09:04-0400 Systolic blood pressure 128 mm[Hg] Dr. Danielle Johnson MD Work Phone: [facility] 05-24-2023 09:37-0400 Body height 182.[address] Darnell [facility] 05-24-2023 09:37-0400 Body mass index (BMI) [Ratio] 27.2 kg/m2 Dr. Darnell [facility] 05-24-2023 09:37-0400 Body temperature 98.2 [degF] Dr. Darnell [facility] 05-24-2023 09:37-0400 Body weight 91.[address] Darnell [facility] 05-24-2023 09:37-0400 Diastolic blood pressure 82 mm[Hg] Dr. Darnell [facility] 05-24-2023 09:37-0400 Heart rate 68 /min [facility]. Darnell [facility] 05-24-2023 09:37-0400 Respiratory rate 18 /min Dr. Darnell [facility] 05-24-2023 09:37-0400 SaO2% (BldA) [Mass fraction] 99 % Dr. Darnell [facility] 05-24-2023 09:37-0400 Systolic blood pressure 116 mm[Hg] Dr. Darnell [facility] Encounters Encounter Date Encounter Type Care Provider Facility Start: 01-29-2025 Encounter for genera l adult medical examination without abnormal findings Danielle Woodylay [facility] Start: 01-29-2025 End: 01-29-[address] Danielle Johnson MD -[facility] Work Phone: Start: 01-29-2025 End: 01-29-[address] Danielle Johnson MD Work Phone: [facility] Work Phone: Start: 06-28-2023 End: 06-28-[address] Darnell [facility] Work Phone: Start: 06-28-2023 End: 06-28-[address] Darnell [facility] Start: 05-24-2023 End: 05-24-[address] Mann Chadwick [facility] Work Phone: Start: 03-30-2022 End: 03-30-2022 Patient encounter procedure [facility] [place] Procedures Date Procedure Procedure Detail Performing Clinician Start: 03-30-2022 Radiography of ankle Plan of Treatment Date Care Activity Detail Author Start: 01-29-2025 Patient referral [facility] Work Phone: CBC W Auto Different ial panel - Blood [facility] Comprehensive metabo lic 1999 panel - Serum or Plasma [facility] Lipid 1996 panel - S wicho or Plasma [facility] Patient referral [facility] Work Phone: Vitamin D, 25-hydrox y measurement [facility] Immunizations Immunization Date Immunization Notes Care Provider Fa cility 05-24-2023 influenza, injectabl e, quadrivalent, preservative free Dr. Darnell [facility] 09-26-2021 Covid (Pfizer) Dr. Darnell [facility] 01-10-2021 Covid (Pfizer) Dr. Darnell [facility] 12-09-2020 Covid (Pfizer) Dr. Darnell [facility] 04-06-2018 tetanus toxoid, redu rochelle diphtheria toxoid, and acellular pertussis vaccine, adsorbed [facility] 09-13-2006 tetanus toxoid, redu rochelle diphtheria toxoid, and acellular pertussis vaccine, adsorbed Dr. Darnell [facility] 10-27-2005 meningococcal polysaccharide (groups A, C, Y and W-135) diphtheria toxoid conjugate vaccine (MCV4P) Dr. Darnell [facility] 10-27-[address] Darnell [facility] 10-27-[address] Darnell [facility] 10-26-2005 hepatitis A vaccine, pediatric/adolescent dosage, [address] Darnell [facility] 09-10-1999 hepatitis A vaccine, pediatric/adolescent dosage, [address] Darnell [facility] 09-10-1999 poliovirus vaccine, inactivated [facility] Payers Date Payer Category Payer Self-pay [id number] Unknown [id number] Unknown [id number] Social History Date Type Detail Facility Start: 10-10-2018 End: 05-20-2023 Tobacco smoking status NHIS Unknown if ever smoked [facility] Start: 1975 Sex Assigned At Male [facility] Start: 01-29-2025 Tobacco smoking stat us NVIS Never smoked tobacco (finding) [facility] Medical Equipment Procedure Code Equipment Code Equipment Origin al Text Equipment Identifier Dates Arthroscopy, knee NEEDLE REV CRV DEL SYS FDA Start: 07-20-2018 Arthroscopy, knee NEEDLE REV CRV DEL SYS FDA Start: 07-20-2018 Arthroscopy, knee NEEDLE REV CRV DEL SYS FDA Start: 07-20-2018 Arthroscopy, knee NEEDLE REV CRV DEL SYS FDA Start: 07-20-2018 Arthroscopy, knee NEEDLE REV CRV DEL SYS FDA Start: 07-20-2018 Arthroscopy, knee NEEDLE REV CRV DEL SYS FDA Start: 07-20-2018 Arthroscopy, knee NEEDLE REV CRV DEL SYS FDA Start: 07-20-2018 Arthroscopy, knee NEEDLE REV CRV DEL SYS FDA Start: 07-20-2018 Arthroscopy, knee NEEDLE REV CRV DEL SYS FDA Start: 07-20-2018 Arthroscopy, knee NEEDLE REV CRV DEL SYS FDA Start: 07-20-2018 Arthroscopy, knee NEEDLE REV CRV DEL SYS FDA Start: 07-20-2018 Arthroscopy, knee NEEDLE REV CRV DEL SYS FDA Start: 07-20-2018 Arthroscopy, knee NEEDLE REV CRV DEL SYS FDA Start: 07-20-2018 Arthroscopy, knee NEEDLE REV CRV DEL SYS FDA Start: 07-20-2018 Arthroscopy, knee NEEDLE REV CRV DEL SYS FDA Start: 07-20-2018 Chief complaint+Reason for visit Narrative Note Date & Type Note Facility Chief complaint+Reason for visit Narrative Reason for Visit Anxiety Immunization due Overweight (BMI 25.0-29.9) [facility] Work Phone: Evaluation note Note Date & Type Note Facility Evaluation note No assessment information availa ble [facility] Work Phone: Evaluation note Note Date & Type Note Facility Evaluation note Diagnosis Onset Date Anxiety acute Immunization due noneactive Overweight (BMI 25.0-29.9) n oneactive [facility] Work Phone: Evaluation note Note Date & Type Note Facility Evaluation note Diagnosis Onset Date Resolution Anxiety acute January 29 9:00am Screening for colon cancer noneactive January 29, 2025 9:00am Overweight (BMI 25.0-29.9) noneactive January 29, 2025 9:00am Annual physical exam noneactive January 29, 2025 9:00am Mixed hyperlipidemia noneactive January 29, 2025 9:00am Vitamin D deficiency noneactive January 29, 2025 9:00am [facility] Work Phone: Hospital Discharge instructions Note Date & Type Note Facility Hospital Discharge instructions Ambulatory OrdersGeneral Surgery Location: None Selected [facility] Work Phone: Reason for referral (narrative) Note Date & Type Note Facility Reason for referral (narrative) No reason for referral information available [facility] Work Phone: Summary Purpose Family History No Family History Records Found Relationship Condition Age at Onset Recorded Date/T skip father Hypertension Unknown Relationship Condition Age at Onset Recorded Date/T skip father Hypertension Unknown grandfather Malignant neoplasm of colon Unknown uncle Malignant neoplasm Unknown sister Malignant neoplasm of esophagus Unknown Advance Directives No Advanced Directives Records Found Advance Directive Response Recorded Date/ Time Living Will Yes July 18 4:53pm Power of Double Needle Stitcher Yes July 18, 2018 4:53pm Advance Directive Response Recorded Date/ Time Living Will Yes July 18 3:53pm Power of Double Needle Stitcher Yes July 18, 2018 3:53pm Advance Directive Response Recorded Date/ Time Living Will Yes July 18 4:53pm Do you have a Healthcare Power of Double Needle Stitcher? Yes July 18, 2018 4:53pm Chief Complaint and Reason for Visit Chief Complaint Admit Date yearly January 29, 2025 9:00 am Reason for Visit Admit Date Anxiety January 29, 2025 9:00 am Screening for colon cancer January 29 9:00am Overweight (BMI 25.0-29.9) January 29 9:00am Annual physical exam January 29, 2025 9:0 0am Mixed hyperlipidemia January 29, 2025 9:0 0am Vitamin D deficiency January 29, 2025 9:0 0am Additional Source Comments (unrecognized sect ion and content) No Status Records FoundNo Status Records Found INFORMATION SOURCE (unrecogn ized section and content) DATE CREATED AUTHOR 10/04/2019 [facility] ([place]) DATE CREATED AUTHOR AUTHOR'S ORGANIZ ATION 01/30/2025 [facility] Goals (unrecognized section and content) Goals may be documented in a n alternate sectionGoals may be documented in an alternate sectionGoals may be documented in an alternate section Care Teams (unrecognized sec tion and content) Team Status: Active Member Role Status Dates Dr. Mann Chadwick MD Family Provider Active Dr. Danielle Johnson MD Primary Care Provider Active Team Status: Inactive Member Role Status Dates Dr. Mann Chadwick MD Primary Care Provider, Referring Provider Active Dr. Danielle Johnson MD Attending Provider Active Team Status: Inactive Member Role Status Dates Dr. Danielle Johnson MD Primary Care Pro vider, Attending Provider, Referring Provider Active Team Status: Inactive Member Role Status Dates Dr. Danielle Johnson MD Primary Care Provider Active Start: January 29, 2025 End: January 29, 2025 Dr. Danielle Johnson MD Attending Provider Active Start: January 29, 2025 End: January 29, 2025 Dr. Danielle Johnson MD Referring Provider Active Start: January 29, 2025 End: January 29, 2025 FOR RECORDS PERTAINING TO PATIENTS WHO ARE OR HAVE BEEN ENROLLED IN A CHEMICAL DEPENDENCY/SUBSTANCEABUSE PROGRAM, SOME INFORMATION MAY BE OMITTED. This clinical summary was aggregated from multiple sources. Caution should be exercised in using it in the provision of clinical care. This summary normalizes information from multiple sources, and as a consequence, information in this document may materially change the coding, format and clinical context of patient data. In addition, data may be omitted in some cases. CLINICAL DECISIONS SHOULD BE BASED ON THE PRIMARY CLINICAL RECORDS. [employer] provides no warranty or guarantee of the accuracy or completeness of information in this document.
[2025-02-02 12:40] LABS: Absolute Lymphocyte Count 1.79 X10^3/uL (0.83-4.51); Absolute Neutrophil Count 2.6 X10^3/uL (2.0-7.7); Basophil# 0.03 X10^3/uL; Basophil% 0.6 % (0-1); Eosinophil# 0.12 X10^3/uL; Eosinophils% 2.5 % (0-5); Hematocrit 42.8 % (40-54); Hemoglobin 14.7 g/dL (13.0-16.5); Lymphocyte # 1.79 X10^3/ul (0.83-4.51); Lymphocyte % 36.8 % (19-41); Mean Corp Hgb Conc 34.3 g/dL (32-36); Mean Corpuscular Hgb 29.6 pg (27.0-32.0); Mean Corpuscular Volume 86.3 fL (80-94); Mean Platelet Vol. 10.8 fl (6.2-12.0); Monocyte% 6.2 % (0-10); NRBC Flagged by Analyzer 0 % (0-5); Neutrophil # 2.62 X10^3/uL (2.7-7.7); Neutrophil % 53.9 % (47-70); Platelet Count 181 K/mm3 (150-450); RBC Distribution Width CV 12.3 % (11.6-14.6); RBC Distribution Width SD 38.6 fl (35.1-43.9); Red Blood Count 4.96 M/mm3 (4.6-6.2); White Blood Count 4.9 K/mm3 (4.4-11.0)
[2025-02-02 15:54] LABS: ALB/GLOB Ratio 1.7 RATIO (0.9-2.4); AST(SGOT) 26 U/L (<=37); Alanine Aminotransfer ALT/SGPT 33 U/L (<=46); Albumin, Serum 4.4 g/dL (3.5-5.0); Alkaline Phosphatase 60 U/L (40-129); Anion Gap 11 (5-15); BUN 17 mg/dL (4-19); Calcium,Total 9.3 mg/dL (7.6-11.0); Carbon Dioxide 25.4 mmol/L (21.0-32.0); Chloride 105 mmol/L (98-108); Cholesterol 217 mg/dL (<=200); Creatinine, Serum 1.05 mg/dL (0.70-1.20); EST Glomerular Filtration Rate 88 (>60); Globulin 2.5 g/dL (2.2-4.2); Glucose 85 mg/dL (70-99); High Density Lipoprotein 37 mg/dL; Low Density Lipoprotein Calc. 146 mg/dL; Potassium 4.3 mmol/L (3.3-5.1); Protein, Total 6.9 g/dL (5.9-8.4); Sodium Level 141 mmol/L (133-145); Total Bilirubin 0.56 mg/dL (0.00-1.30); Triglycerides 167 mg/dL; Very Low Density Lipoprotein 33 mg/dL (5-40); Vitamin D,25 Hydroxy 33.2 ng/mL (30-100)
== END | disposition home or self-care (01) ==
LOC: BIMLAB 08:05
PROVIDERS: PCP Internal Medicine; Referring Provider Internal Medicine; Visit Provider Internal Medicine
DX: Z00.00 Encounter for general adult medical examination without abnormal findings (principal); E78.2 Mixed hyperlipidemia; E55.9 Vitamin D deficiency, unspecified
CPT/HCPCS: 36415; 80053; 80061; 82306; 85025

== ENCOUNTER → 2025-06-21 | Outpatient (CLI) | payer OTHER, SELFPAY ==
[2025-06-21 13:53] LABS: Cholesterol 199 mg/dL (<=200); Low Density Lipoprotein Calc. 137 mg/dL; Triglycerides 117 mg/dL; Very Low Density Lipoprotein 23 mg/dL (5-40); Vitamin D,25 Hydroxy 40.6 ng/mL (30-100); cholesterol:hdl ratio screen 4.94
== END | disposition home or self-care (01) ==
LOC: MTLAB 10:35
PROVIDERS: PCP Internal Medicine; Referring Provider Internal Medicine; Visit Provider Internal Medicine
DX: E55.9 Vitamin D deficiency, unspecified (principal); E78.2 Mixed hyperlipidemia
CPT/HCPCS: 36415; 80061; 82306

== ENCOUNTER 2025-08-10 23:48 | Emergency (ER) | payer OTHER, SELFPAY ==
[2025-08-10 23:49] VITALS: BP 156/88; PULSE 60; RESP 14; TEMP 36.2; O2SAT 98; BMI 26.9
--- OUTSIDE RECORDS SUMMARY | 2025-08-11 00:22 | XMS RPT_ITS | CCD ---
Author Organization [facility] Care Team Providers Care Document Control Supervisor Name Role Phone Dr. Mann Chadwick Primary Care Provider Unavaila Dr. Mann Muro Referring Provider Unavailable Dr. Danielle Johnson Attending Provider [phone] Alex SHERIFF, Dr. Santos Primary Care Provider Alex SHERIFF, Dr. Santos Attending Provider Alex SHERIFF, Dr. Santos Referring Provider Lovingston, Danielle Referring Unavailable Alex, Danielle Primary Care Unavailable Alex, Danielle Attending Unavailable Alex, Danielle Referring Unavailable [place]ston, Danielle Primary Care Unavailable Alex, Danielle Attending Unavailable [place]ston, Danielle Primary Care Unavailable Alex, Danielle Attending Unavailable [place], Danielle Referring Unavailable Alex, Danielle Referring Unavailable L[place]ston, Danielle Primary Care Unavailable [place]ston, Danielle Attending Unavailable Allergies Allergy Classification Reported Allergen(s) Allergy Type Date of Onset Reaction(s) Facility (4 sources) animal dander; Translations: [animal dander] Allergy to substance 05-24-2023 Other [facility] Comment on above: SNEEZING, ITCHY EYES , RUNNY NOSE Medications Current Medications Medication Drug Class(es) Dates Sig (Normalized) Sig (Original) atorvastatin 10 mg oral tablet (1 source) HMG-CoA Reductase Inhibitor Start: 02-05-2025 take 1 tablet by mouth at bedtime Atorvastatin (Lipitor) 10 mg tablet Active 10 mg PO AT BEDTIME February 05, 2025 12:00am cholecalciferol 0.025 mg oral capsule (3 sources) Vitamin D Start: 06-28-2023 take 1 capsule by mouth once daily Cholecalciferol (Vitamin D3) 25 mcg (1,000 unit) capsule Active 25 ug PO DAILY June 28, 2023 1:00am sertraline 25 mg oral tablet (15 sources) Serotonin Reuptake Inhibitor Start: 01-29-2025 Sertraline (Zoloft) 25 mg tablet Active 12.5 mg PO daily 45 January 29, 2025 9:23am Start: 01-29-2025 End: [...] / HYDROcodone bitartrate 5 mg oral tablet (4 sources) Opioid Agonist Start: 07-20-2018 End: 07-25-2018 [...] Date Documented Da te Episodic/Chronic Anxiety disorders (6 sources) Anxiety; Translations: [Anxiety disorder, unspecified] 01-18-2023 Chronic Disorders of lipid metabolism (3 sources) Mixed hyperlipidemia; Translations: [Mixed hyperlipidemia] Onset: 06-21-2025 01-29-2025 Chronic Headache; including migraine (3 sources) Migraine; Translations: [Migraine, unspecified, not intractable, without status migrainosus] 01-18-2023 Chronic Immunizations and screening for infectious disease (2 sources) Encounter for immunization; Translations: [Need for prophylactic vaccination and inoculation against unspecified single disease] Onset: 06-21-2025 05-24-2023 Episodic Mood disorders (3 sources) Depressive disorder; Translations: [Depression] 01-18-2023 Chronic Nutritional deficiencies (3 sources) Vitamin D deficiency; Translations: [Vitamin D deficiency, unspecified] Onset: 06-21-2025 01-29-2025 Chronic Other nutritional; endocrine; and metabolic disorders (1 source) Overweight; Translations: [Overweight] 05-24-2023 Episodic Other nutritional; endocrine; and metabolic disorders (2 sources) Body mass index 25-29 - overweight; Translations: [Overweight] 01-29-2025 Episodic Other screening for suspected conditions (not mental disorders or infectious disease) (2 sources) Patient encounter status; Translations: [Encounter for screening for malignant neoplasm of colon] 01-29-2025 Episodic Results Test Name Value Interpretation Reference Range Facility Lipid Profileon 06-21-2025 CHOL:HDL 4.94 Normal [facility] Comment on above: Performed By: #### L 506.1001, L500.5770 #### [facility] [address] [place], [place], [id number] Cholesterol [Mass/Vol] 199 mg/dL Normal <=200 [facility] Comment on above: Result Comment: Chol esterol level, Desirable <200 mg/dL Borderline high cholesterol 200-239 mg/dL High cholesterol >=240 mg/dL Recommendations of the NCEP Adult Treatment Panel for the following risk-cutoff thresholds for the [place] population. Performed By: #### L 506.1001, L500.4100 #### [facility] [address] [place], [place], [id number] Cholesterol in HDL [Mass/Vol] 40 mg/dL Normal [facility] Comment on above: Result Comment: Kelsi onal Cholesterol Education Program (NCEP) guidelines: <40 mg/dL: Low HDL-cholesterol (major risk factor for CHD) >= 60 mg/dL: High HDL-cholesterol (negative risk factor for CHD) HDL-cholesterol is affected by a number of factors, e.g. smoking, exercise, hormones, sex and age. Performed By: #### L 506.1001, L500.4100 #### [facility] [address] [place], [address] Cholesterol in LDL [Mass/Vol] 137 mg/dL Normal [facility] Comment on above: Result Comment: Bord pzhrsd=042-525 mg/dL Higher Ybxy=854 mg/dL or greater Navarro Equation 2020 for LDL-C Performed By: #### L 506.1001, L500.4100 #### [facility] [address] [place], [address] Cholesterol in VLDL [Mass/Vol] 23 mg/dL Normal 5-40 [facility] Comment on above: Performed By: #### L 506.1001, L500.4100 #### [facility] [address] [place], [address] Triglyceride [Mass/Vol] 117 mg/dL Normal [facility] Comment on above: Result Comment: The drugs N-Acetylcysteine and Metamizole may falsely depress this assay. Normal range: <150 mg/dL Borderline High: 150-199 mg/dL High: 200-499 mg/dL Very High: >500 mg/dL Performed By: #### L 506.1001, L500.4100 #### [facility] [address] [place], [address] Vitamin D,25 Hydroxyon 06-21 Vitamin D 25-OH 40.6 ng/mL Normal 30-100 [facility] Comment on above: Result Comment: Doris min D Status Deficiency: <20 ng/mL (50nmol/L) Insufficiency: 20-30 ng/mL (50-75 nmol/L) Sufficiency: 30-100 ng/mL (75-250 nmol/L) Toxicity: >100 ng/mL (>250 nmol/L) Performed By: #### L 506.1001, L500.4100 #### [facility] [address] [place], [address] Internal Medicine Office Vis iton 06-19-2025 Internal Medicine Office Visit [facility] Internal Medicine [address] [place] [address] [place] [address] OFFICE VISIT Date of Service: 06/21/25 MR#: [id number] Acct: [id number] Name: SAMRA GARCÍA Rep #: [id number] : 1975 Provider: Dr. Danielle da silva MD Age/Sex: 49/M Location: [facility] Status: Signed Intake Vital Signs 01/29/25 09:04 06/21/25 09:35 Height 6 ft 6 ft Weight: 199 lb 6 oz BMI 27.0 BP 118/86 H Blood Pressure Location Lt brachial Position Sitting Respiration 12 Pulse 51 L Pulse Source Monitor Temp 97.6 F L Temp Source Temporal Pulse Oximetry (%) 98 Oxygen Delivery Method room air Intake Visit Reasons: DISCUSS CHOLESTEROL Chief Complaint: cholesterol discuss medication Drama Critic Required: No Accompanied by: Self Is patient in pain?: No Allergies animal dander Allergy (Intermediate, Verified 06/21/25 09:31) Other Medications ???Medication ???Instructions ???Recorded ???Confirmed ???Type cholecalciferol (vitamin D3) 25 25 mcg PO DAILY #1 cap 06/28/23 Rx mcg (1,000 unit) capsule sertraline 25 mg tablet (Zoloft) 12.5 mg (1/2 x 25 mg) PO QDAY #45 04/23/25 06/21/25 Rx tabs Have you fallen in the past year?: No Nurse's Note: discuss cholesterol levels risk factors and possible alternatives to medication [facility] History Seasonal allergies Anxiety Depression Migraine Skull fracture Surgical History History of lateral meniscus repair of left knee Family History Father Hypertension Grandfather Colon cancer Uncle Cancer PROSTATE Sister Esophageal cancer Social History adopted: No household members: spouse and children [...] do you feel safe at home: Yes HPI HPI Chief Complaint: cholesterol discuss medication Details: SAMRA GARCÍA, is a 49 M who presents to the office today for a follow up. He is due for some follow up labs. He never did his colon cancer screening as previously referred and would rather do the cologuard. He would like his flu shot today. He doesn't smoke and does need refills. He is eating healthy and staying active. He reports his mental health has been doing good. He is taking his zoloft as prescribed without problems and does think it helps. He states he only takes 12.5mg. He denies any current concerns a nd denies any thoughts of suicide. Following his last office visit, he was started on a low dose of lipitor due to hyperlipidemia. He reports that he never started it due to his concern about side effects and states he would rather try to do conservative changes prior to starting a medication. He states he has tried exercising more, 4-5 times per week, has cut back on red meat and switched to almond milk. He reports he has also cut back on his sugar intake. He has no other questions or concerns at this time. ROS Const Constitutional: No body ache, excessive sweating, fatigue, fever(s), frequent falls, headache(s), snoring, weakness, weight change, sleep problems or change in appetite Eyes Eyes: No blurry vision, change in vision, eye pain or Light sensitivity ENT ENT: No abnormal hearing, ear or mastoid pain, tinnitus, nasal congestion, headache(s), neck pain or sore throat Resp Respiratory: No cough, shortness of breath, snoring or wheezing Cardio Cardiology: No chest pain at rest, chest pain with exertion, excessive sweating, shortness of breath, dyspnea on exertion, lightheadedness, orthopnea, palpitations or other (no leg swelling) Gastro GI: No abdominal pain, change in bowel habits, constipation, cramping, diarrhea, nausea/dyspepsia or vomiting Genitourinary Male: No difficulty urinating, burning urination, painful urination, urinary incontinence, urinary frequency or blood in urine Musc Musculoskeletal: No abnormal gait, joint pain, back pain, limited range of motion, neck pain, numbness, stiffness, tingling or Arthritis Skin Skin: No dry skin, redness, lesions, itchy eyes, rash or wounds (more content not included)... Normal [facility] Absolute lymphocyte countOrd ered By: Danielle Johnson on 02-02-2025 Lymphocytes Auto (Unsp spec) [#/Vol] 1.79 10*3/uL 0.83-4.51 [facility] Absolute neutrophil countOrd ered By: Danielle Johnson on 02-02-2025 Neutrophils (Bld) [#/Vol] 2.6 10*3/uL 2.0-7.7 [facility] Anion gap in Serum or Plasma Ordered By: Danielle Johnson on 02-02-2025 Anion gap [Moles/Vol] 11 mmol/L 5-15 [facility] Automated lymphocyte count a s percentage of total leukocytesOrdered By: Danielle Johnson on 02-02-2025 Lymphocytes/100 WBC Auto (Unsp spec) 36.8 % 19- [facility] BUN/creatinine ratioOrdered By: Danielle Johnson on 02-02-2025 Urea nitrogen/Creatinine [Mass ratio] 16.0 mg/mg - [facility] Basophil percentageOrdered B y: Danielle Johnson on 02-02-2025 Basophils/100 WBC (Bld) 0.6 % 0-1 [facility] Bilirubin, totalOrdered By: Danielle Johnson on 02-02-2025 Bilirubin [Mass/Vol] 0.56 mg/dL 0.00-1.30 [facility] CBC W/Diff, Automatedon 01-15 Absolute Lymph 1.79 X10 3/uL Normal 0.83-4.51 [facility] Comment on above: Performed By: #### L 500.4050, L100.0100, L506.1001, L500.4100 #### [facility] [address] [place], [address] Absolute Neut 2.6 X10 3/uL Normal 2.0-7.7 [facility] Comment on above: Performed By: #### L 500.4050, L100.0100, L506.1001, L500.4100 #### [facility] [address] [place], [address] Basophils/100 WBC (Bld) 0.6 % Normal 0-1 [facility] Comment on above: Performed By: #### L 500.4050, L100.0100, L506.1001, L500.4100 #### [facility] [address] [place], [address] Eosinophils/100 WBC (Bld) 2.5 % Normal 0-5 [facility] Comment on above: Performed By: #### L 500.4050, L100.0100, L506.1001, L500.4100 #### [facility] [address] [place], [address] Erythrocyte distribution width (RBC) [Ratio] 12.3 % Normal 11.6-14.6 [facility] Comment on above: Performed By: #### L 500.4050, L100.0100, L506.1001, L500.4100 #### [facility] [address] [place], [address] Hematocrit (Bld) [Volume fraction] 42.8 % Normal 40-54 [facility] Comment on above: Performed By: #### L 500.4050, L100.0100, L506.1001, L500.4100 #### [facility] [address] [place], [address] Hemoglobin (Bld) [Mass/Vol] 14.7 g/dL Normal 13.0-16.5 [facility] Comment on above: Performed By: #### L 500.4050, L100.0100, L506.1001, L500.4100 #### [facility] [address] [place], [address] IG% 0.000 Normal 0.0-0.9 [facility] Comment on above: Result Comment: IG% - Immature Granulocytes (promyelocytes, myelocytes and metamyelocytes) > 1% indicates that a LEFT SHIFT is Present. Performed By: #### L 500.4050, L100.0100, L506.1001, L500.4100 #### [facility] [address] [place], [address] Lymphocytes/100 WBC (Bld) 36.8 % Normal 19-41 [facility] Comment on above: Performed By: #### L 500.4050, L100.0100, L506.1001, L500.4100 #### [facility] [address] [place], [address] MCH (RBC) [Entitic mass] 29.6 pg Normal 27.0-32.0 [facility] Comment on above: Performed By: #### L 500.4050, L100.0100, L506.1001, L500.4100 #### [facility] [address] [place], [address] MCHC (RBC) [Mass/Vol] 34.3 g/dL Normal 32-36 [facility] Comment on above: Performed By: #### L 500.4050, L100.0100, L506.1001, L500.4100 #### [facility] [address] [place], [address] MCV (RBC) [Entitic vol] 86.3 fL Normal 80-94 [facility] Comment on above: Performed By: #### L 500.4050, L100.0100, L506.1001, L500.4100 #### [facility] [address] [place], [address] Monocytes/100 WBC (Bld) 6.2 % Normal 0-10 [facility] Comment on above: Performed By: #### L 500.4050, L100.0100, L506.1001, L500.4100 #### [facility] [address] [place], [address] Neutrophils/100 WBC (Bld) 53.9 % Normal 47-70 [facility] Comment on above: Performed By: #### L 500.4050, L100.0100, L506.1001, L500.4100 #### [facility] [address] [place], [address] Nucleated RBC (Bld) [#/Vol] 0 10*3/uL Normal 0-5 [facility] Comment on above: Performed By: #### L 500.4050, L100.0100, L506.1001, L500.4100 #### [facility] [address] [place], [address] Platelet mean volume (Bld) [Entitic vol] 10.8 fL Normal 6.2-12.0 [facility] Comment on above: Performed By: #### L 500.4050, L100.0100, L506.1001, L500.4100 #### [facility] [address] [place], [address] Platelets (Bld) [#/Vol] 181 10*3/uL Normal 150-450 [facility] Comment on above: Performed By: #### L 500.4050, L100.0100, L506.1001, L500.4100 #### [facility] [address] [place], [address] RBC (Bld) [#/Vol] 4.96 10*6/uL Normal 4.6-6.2 [facility] Comment on above: Performed By: #### L 500.4050, L100.0100, L506.1001, L500.4100 #### [facility] [address] [place], [address] RDW SD 38.6 fl Normal 35.1-43.9 [facility] Comment on above: Performed By: #### L 500.4050, L100.0100, L506.1001, L500.4100 #### [facility] [address] [place], [address] WBC (Bld) [#/Vol] 4.9 10*3/uL Normal 4.4-11.0 [facility] Comment on above: Performed By: #### L 500.4050, L100.0100, L506.1001, L500.4100 #### [facility] [address] [place], [address] Calculated very low density lipoprotein (VLDL) cholesterol measurementOrdered By: Danielle Johnson on 02-02-2025 Calculated very low density lipoprotein (VLDL) cholesterol measurement 33 mg/dL 5-40 [facility] Carbon dioxide, total [Moles /volume] in Central venous bloodOrdered By: Danielle Johnson on 02-02-2025 CO2 [Moles/Vol] 25.4 mmol/L 21.0-32.0 [facility] Chloride assayOrdered By: Al mc Johnson on 02-02-2025 Chloride [Moles/Vol] 105 mmol/L 98-108 [facility] Comprehensive Metabolic Prof ilon 02-02-2025 Albumin [Mass/Vol] 4.4 g/dL Normal 3.5-5.0 [facility] Comment on above: Performed By: #### L 500.4050, L100.0100, L506.1001, L500.4100 #### [facility] [address] [place], [address] Albumin/Globulin [Mass ratio] 1.7 {ratio} Normal 0.9-2.4 [facility] Comment on above: Performed By: #### L 500.4050, L100.0100, L506.1001, L500.4100 #### [facility] [address] [place], [address] ALK PHOS 60 U/L Normal 40-129 [facility] Comment on above: Performed By: #### L 500.4050, L100.0100, L506.1001, L500.4100 #### [facility] [address] [place], [address] ALT [Catalytic activity/Vol] 33 U/L Normal <=46 [facility] Comment on above: Performed By: #### L 500.4050, L100.0100, L506.1001, L500.4100 #### [facility] [address] [place], [address] AST [Catalytic activity/Vol] 26 U/L Normal <=37 [facility] Comment on above: Performed By: #### L 500.4050, L100.0100, L506.1001, L500.4100 #### [facility] [address] [place], [address] Bilirubin [Mass/Vol] 0.56 mg/dL Normal 0.00-1.30 [facility] Comment on above: Performed By: #### L 500.4050, L100.0100, L506.1001, L500.4100 #### [facility] [address] [place], [address] BUN/CRE 16.0 RATIO Normal 10-20 [facility] Comment on above: Performed By: #### L 500.4050, L100.0100, L506.1001, L500.4100 #### [facility] [address] [place], [address] Calcium [Mass/Vol] 9.3 mg/dL Normal 7.6-11.0 [facility] Comment on above: Performed By: #### L 500.4050, L100.0100, L506.1001, L500.4100 #### [facility] [address] [place], [address] Chloride [Moles/Vol] 105 mmol/L Normal 98-108 [facility] Comment on above: Performed By: #### L 500.4050, L100.0100, L506.1001, L500.4100 #### [facility] [address] [place], [address] CO2 [Moles/Vol] 25.4 mmol/L Normal 21.0-32.0 [facility] Comment on above: Performed By: #### L 500.4050, L100.0100, L506.1001, L500.4100 #### [facility] [address] [place], [address] Creatinine [Mass/Vol] 1.05 mg/dL Normal 0.70-1.20 [facility] Comment on above: Performed By: #### L 500.4050, L100.0100, L506.1001, L500.4100 #### [facility] [address] [place], [address] GAP 11 Normal 5-15 [facility] Comment on above: Performed By: #### L 500.4050, L100.0100, L506.1001, L500.4100 #### [facility] [address] [place], [address] GFR/1.73 sq M.predicted among non-blacks MDRD (S/P/Bld) [Vol rate/Area] 88 mL/min/{1.73_m2} Normal >60 [facility] Comment on above: Result Comment: mL/m in/1.73m2 CKD-EPI Creatinine Equation (2020) Performed By: #### L 500.4050, L100.0100, L506.1001, L500.4100 #### [facility] [address] [place], [address] Globulin (S) [Mass/Vol] 2.5 g/dL Normal 2.2-4.2 [facility] Comment on above: Performed By: #### L 500.4050, L100.0100, L506.1001, L500.4100 #### [facility] [address] [place], [address] Glucose [Mass/Vol] 85 mg/dL Normal 70-99 [facility] Comment on above: Performed By: #### L 500.4050, L100.0100, L506.1001, L500.4100 #### [facility] [address] [place], [address] Potassium [Moles/Vol] 4.3 mmol/L Normal 3.3-5.1 [facility] Comment on above: Performed By: #### L 500.4050, L100.0100, L506.1001, L500.4100 #### [facility] [address] [place], [address] Sodium [Moles/Vol] 141 mmol/L Normal 133-145 [facility] Comment on above: Performed By: #### L 500.4050, L100.0100, L506.1001, L500.4100 #### [facility] [address] [place], [address] T PROT 6.9 g/dL Normal 5.9-8.4 [facility] Comment on above: Performed By: #### L 500.4050, L100.0100, L506.1001, L500.4100 #### [facility] [address] [place], [place], [id number] Urea nitrogen [Mass/Vol] 17 mg/dL Normal 4-19 [facility] Comment on above: Performed By: #### L 500.4050, L100.0100, L506.1001, L500.4100 #### [facility] [address] [place], [address] Eosinophil percentageOrdered By: Danielle Johnson on 02-02-2025 Eosinophils/100 WBC (Bld) 2.5 % 0-5 [facility] Erythrocyte distribution wid th ratioOrdered By: Danielle Johnson on 02-02-2025 Erythrocyte distribution width (RBC) [Ratio] 12.3 % 11.6-14.6 [facility] Erythrocyte distribution wid th standard deviationOrdered By: Danielle Johnson on 02-02-2025 Erythrocyte distribution width (RBC) [Ratio] 38.6 fl 35.1-43.9 [facility] Glomerular filtration rate ( GFR) estimation/1.73 sq m using serum, plasma, or whole bOrdered By: Danielle Johnson on 02-02-2025 GFR/1.73 sq M.predicted among non-blacks MDRD (S/P/Bld) [Vol rate/Area] 88 mL/min/{1.73_m2} >60 [facility] Comment on above: mL/min/1.73m2 CKD-EP I Creatinine Equation (2020) Hematocrit Auto (Bld) [Volum e fraction]Ordered By: Danielle Johnson on 02-02-2025 Hematocrit (Bld) [Volume fraction] 42.8 % 40-54 [facility] Hemoglobin measurementOrdere d By: Danielle Johnson on 02-02-2025 Hemoglobin (Bld) [Mass/Vol] 14.7 g/dL 13.0-16.5 [facility] Immature granulocytes/100 WB C Auto (Bld)Ordered By: Danielle Johnson on 02-02-2025 Immature granulocytes/100 WBC (Bld) 0.000 % 0.0-0.9 [facility] Comment on above: IG% - Immature Granu locytes (promyelocytes, myelocytes and metamyelocytes) > 1% indicates that a LEFT SHIFT is Present. LDL calc ser/plasOrdered By: Danielle Johnson on 02-02-2025 Cholesterol in LDL [Mass/Vol] 146 mg/dL [facility] Comment on above: Abclctmhya=044-345 m g/dL & Higher Wstp=851 mg/dL or greater Laboratory - Chemistry and C hemistry - challengeOrdered By: Danielle Johnson on 02-02-2025 AST [Catalytic activity/Vol] 26 U/L <38 [facility] Lipid Profileon 02-02-2025 CHOL:HDL 5.80 Normal [facility] Comment on above: Performed By: #### L 500.4050, L100.0100, L506.1001, L500.4100 #### [facility] [address] [place], [address] Cholesterol [Mass/Vol] 217 mg/dL High <=200 [facility] Comment on above: Result Comment: Chol esterol level, Desirable <200 mg/dL Borderline high cholesterol 200-239 mg/dL High cholesterol >=240 mg/dL Recommendations of the NCEP Adult Treatment Panel for the following risk-cutoff thresholds for the [place] population. Performed By: #### L 500.4050, L100.0100, L506.1001, L500.4100 #### [facility] [address] [place], [address] Cholesterol in HDL [Mass/Vol] 37 mg/dL Low [facility] Comment on above: Result Comment: Kelsi onal Cholesterol Education Program (NCEP) guidelines: <40 mg/dL: Low HDL-cholesterol (major risk factor for CHD) >= 60 mg/dL: High HDL-cholesterol (negative risk factor for CHD) HDL-cholesterol is affected by a number of factors, e.g. smoking, exercise, hormones, sex and age. Performed By: #### L 500.4050, L100.0100, L506.1001, L500.4100 #### [facility] [address] [place], [address] Cholesterol in LDL [Mass/Vol] 146 mg/dL Normal [facility] Comment on above: Result Comment: Bord fkcgkq=654-579 mg/dL Higher Aftw=651 mg/dL or greater Performed By: #### L 500.4050, L100.0100, L506.1001, L500.4100 #### [facility] [address] [place], [address] Cholesterol in VLDL [Mass/Vol] 33 mg/dL Normal 5-40 [facility] Comment on above: Performed By: #### L 500.4050, L100.0100, L506.1001, L500.4100 #### [facility] [address] [place], [address] Triglyceride [Mass/Vol] 167 mg/dL Normal [facility] Comment on above: Result Comment: The drugs N-Acetylcysteine and Metamizole may falsely depress this assay. Normal range: <150 mg/dL Borderline High: 150-199 mg/dL High: 200-499 mg/dL Very High: >500 mg/dL Performed By: #### L 500.4050, L100.0100, L506.1001, L500.4100 #### [facility] [address] [place], [address] MCV (mean corpuscular volume ) determinationOrdered By: Danielle Alex on 02-02-2025 MCV (RBC) [Entitic vol] 86.3 fL 80-94 [facility] Mean corpuscular hemoglobin (MCH) determinationOrdered By: Danielle Lovingston on 02-02-2025 MCH (RBC) [Entitic mass] 29.6 pg 27.0-32.0 [facility] Mean corpuscular hemoglobin concentration (MCHC) determinationOrdered By: Danielle Johnson on 02-02-2025 MCHC (RBC) [Mass/Vol] 34.3 g/dL 32-36 [facility] Mean platelet volume determi nationOrdered By: Danielle Johnson on 02-02-2025 Platelet mean volume (Bld) [Entitic vol] 10.8 fL 6.2-12.0 [facility] Monocyte percentageOrdered B y: Danielle Johnson on 02-02-2025 Monocytes/100 WBC (Bld) 6.2 % 0-10 [facility] Neutrophil percentageOrdered By: Danielle Johnson on 02-02-2025 Neutrophils/100 WBC (Bld) 53.9 % 47-70 [facility] Nucleated red blood cell per centageOrdered By: Danielle Johnson on 02-02-2025 Nucleated RBC/100 WBC (Bld) [Ratio] 0 % 0-5 [facility] Platelet countOrdered By: Chino Johnson on 02-02-2025 Platelets (Bld) [#/Vol] 181 10*3/uL 150-450 [facility] Potassium measurement (mass/ volume)Ordered By: Danielle Johnson on 02-02-2025 Potassium (Unsp spec) [Mass/Vol] 4.3 mmol/L 3.3-5.1 [facility] RBC Auto (Bld) [#/Vol]Ordere d By: Danielle Johnson on 02-02-2025 RBC (Bld) [#/Vol] 4.96 10*6/uL 4.6-6.2 [facility] Screening total cholesterol/ high density lipoprotein (HDL) cholesterol ratioOrdered By: Danielle Johnson on 02-02-2025 Cholesterol.total/Cholest cliff in HDL [Mass ratio] 5.80 {ratio} [facility] Serum creatinine measurement (mass/volume)Ordered By: Danielle Johnson on 02-02-2025 Creatinine [Mass/Vol] 1.05 mg/dL 0.70-1.20 [facility] Serum globulin measurementOr dered By: Danielle Johnson on 02-02-2025 Globulin (S) [Mass/Vol] 2.5 g/dL 2.2-4.2 [facility] Serum glucose measurement (m ass/volume)Ordered By: Danielle Johnson on 02-02-2025 Glucose [Mass/Vol] 85 mg/dL 70-99 [facility] Serum or plasma alanine granados otransferase (ALT) measurementOrdered By: Danielle Johnson on 02-02-2025 ALT [Catalytic activity/Vol] 33 U/L <47 [facility] Serum or plasma albumin peter urement (mass/volume)Ordered By: Danielle Johnson on 02-02-2025 Albumin [Mass/Vol] 4.4 g/dL 3.5-5.0 [facility] Serum or plasma albumin/glob ulin mass ratioOrdered By: Danielle Johnson on 02-02-2025 Albumin/Globulin [Mass ratio] 1.7 {ratio} 0.9-2.4 [facility] Serum or plasma alkaline robert sphatase measurementOrdered By: Danielle Johnson on 02-02-2025 ALP [Catalytic activity/Vol] 60 U/L 40-129 [facility] Serum or plasma calcium peter urement (mass/volume)Ordered By: Danielle Johnson on 02-02-2025 Calcium [Mass/Vol] 9.3 mg/dL 7.6-11.0 [facility] Serum or plasma cholesterol in HDL measurement (mass/volume)Ordered By: Danielle Johnson on 02-02-2025 Cholesterol in HDL [Mass/Vol] 37 mg/dL Low >40 [facility] Comment on above: National Cholesterol Education Program (NCEP) guidelines:<40 mg/dL: Low HDL-cholesterol (major risk factor for CHD)>= 60 mg/dL: High HDL-cholesterol (negative risk factor for CHD)HDL-cholesterol is affected by a number of factors, e.g. smoking, exercise, hormones, sex and age. Serum or plasma cholesterol measurement (mass/volume)Ordered By: Danielle Johnson on 02-02-2025 Cholesterol [Mass/Vol] 217 mg/dL High <201 [facility] Comment on above: Cholesterol level, D esirable <200 mg/dLBorderline high cholesterol 200-239 mg/dLHigh cholesterol >=240 mg/dLRecommendations of the NCEP Adult Treatment Panel for the following risk-cutoff thresholds for the [place] population. Serum or plasma urea nitroge n measurement (mass/volume)Ordered By: Danielle Johnson on 02-02-2025 Urea nitrogen [Mass/Vol] 17 mg/dL 4-19 [facility] Sodium levelOrdered By: Emilia Johnson on 02-02-2025 Sodium [Moles/Vol] 141 mmol/L 133-145 [facility] Total proteinOrdered By: Jason Johnson on 02-02-2025 Protein [Mass/Vol] 6.9 g/dL 5.9-8.4 [facility] Triglycerides measurementOrd ered By: Danielle Johnson on 02-02-2025 Triglyceride [Mass/Vol] 167 mg/dL <199 [facility] Comment on above: The drugs N-Acetylcy steine and Metamizole may falsely depress this assay. Normal range: <150 mg/dLBorderline High: 150-199 mg/dLHigh: 200-499 mg/dLVery High: >500 mg/dL Vitamin D,25 Hydroxyon 02-02 Vitamin D 25-OH 33.2 ng/mL Normal 30-100 [facility] Comment on above: Result Comment: Doris min D Status Deficiency: <20 ng/mL (50nmol/L) Insufficiency: 20-30 ng/mL (50-75 nmol/L) Sufficiency: 30-100 ng/mL (75-250 nmol/L) Toxicity: >100 ng/mL (>250 nmol/L) Performed By: #### L 500.4050, L100.0100, L506.1001, L500.4100 #### [facility] [address] [place], [address] White blood cell (WBC) count Ordered By: Danielle Johnson on 02-02-2025 WBC (Bld) [#/Vol] 4.9 10*3/uL 4.4-11.0 [facility] Internal Medicine Office Vis terri 01-25-2025 Internal Medicine Office Visit [facility] [address] [place] [address] [place] [address] OFFICE VISIT Date of Service: 01/29/25 MR#: [id number] Acct: [id number] Name: SAMRA GARCÍA Rep #: [id number] : 1975 Provider: Dr. Danielle da silva MD Age/Sex: 49/M Location: [facility] Status: Signed Intake Vital Signs 01/24/24 09:04 [...] 5 Source: Developed by Drs. Thomas Bartholomew, Ortiz Roa and colleagues, with an educational sofía from [employer]. MAGDY-7 BMS MAGDY-7 Feeling nervous, anxious, or [...] 3 Source: Developed by Drs. Thomas Bartholomew, Ortiz Roa and colleagues, with an educational sofía from [employer]. HPI HPI Chief Complaint: Anxiety Details: SAMRA [...] has no (more content not included)... Normal [facility] Absolute lymphocyte countOrd ered By: Danielle Johnson on 06-28-2023 Lymphocytes Auto (Unsp spec) [#/Vol] 1.85 10*3/uL 0.83-4.51 [facility] Basophil percentageOrdered B y: Danielle Johnson on 06-28-2023 Basophils/100 WBC (Bld) 0.6 % 0-1 [facility] Bilirubin [Mass/Vol] 0.60 mg/dL 0.20-1.00 [facility] Comment on above: For patients on eltr ombopag therapy, use of Dimension [place] TBIL is not recommended. Chloride [Moles/Vol] 107 mmol/L 98-107 [facility] Cholesterol [Mass/Vol] 207 mg/dL <200 [facility] Comment on above: <200 mg/dL Desirable 200-240 mg/dL Borderline >240 mg/dL High Risk Eosinophils/100 WBC (Bld) 1.4 % 0-5 [facility] Glucose [Mass/Vol] 114 mg/dL 74-106 [facility] Comment on above: Fasting Glucose resu lt from 100 to 125 mg/dL suggests IMPAIRED HOMEOSTASIS per A.D.A. criteria. Neutrophils (Bld) [#/Vol] 4.8 10*3/uL 2.0-7.7 [facility] Neutrophils/100 WBC (Bld) 66.7 % 47-70 [facility] Potassium [Moles/Vol] 4.0 mmol/L 3.5-5.1 [facility] Protein [Mass/Vol] 7.4 g/dL 6.4-8.2 [facility] Sodium [Moles/Vol] 138 mmol/L 136-145 [facility] Triglyceride [Mass/Vol] 252 mg/dL <199 [facility] Comment on above: The drugs N-Acetylcy steine and Metamizole may falsely depress this assay.Serum Triglycerides Reference Interval Normal <150 mg/dL Borderline high 150 - 199 mg/dL High 200 - 499 mg/dL Very High > or = 500 mg/dL WBC (Bld) [#/Vol] 7.2 10*3/uL 4.4-11.0 [facility] Blood erythrocytes count (nu mber/volume)Ordered By: Danielle Johnson on 06-28-2023 RBC (Bld) [#/Vol] 5.13 10*6/uL 4.6-6.2 [facility] Blood hemoglobin measurement (mass/volume)Ordered By: Danielle Johnson on 06-28-2023 Hemoglobin (Bld) [Mass/Vol] 14.6 g/dL 13.0-16.5 [facility] Blood lymphocytes/100 leukoc ytesOrdered By: Danielle Johnson on 06-28-2023 Lymphocytes/100 WBC (Bld) 25.7 % 19-41 [facility] Blood monocytes/100 leukocyt esOrdered By: Danielle Johnson on 06-28-2023 Monocytes/100 WBC (Bld) 5.3 % 0-10 [facility] Blood platelet mean volumeOr dered By: Danielle Johnson on 06-28-2023 Platelet mean volume (Bld) [Entitic vol] 10.1 fL 6.2-12.0 [facility] Determination of erythrocyte mean corpuscular volume (MCV)Ordered By: Danielle Johnson on 06-28-2023 MCV (RBC) [Entitic vol] 85.2 fL 80-94 [facility] Hematocrit Auto (Bld) [Volum e fraction]Ordered By: Danielle Johnson on 06-28-2023 Hematocrit (Bld) [Volume fraction] 43.7 % 40-54 [facility] - Chemistry and C hemistry - challengeOrdered By: Danielle Johnson on 06-28-2023 ALP [Catalytic activity/Vol] 69 U/L 45-117 [facility] ALT [Catalytic activity/Vol] 29 U/L 16-61 [facility] CO2 [Moles/Vol] 27.0 mmol/L 21.0-32.0 [facility] Globulin (S) [Mass/Vol] 3.3 g/dL 2.2-4.2 [facility] Urea nitrogen/Creatinine [Mass ratio] 15.1 mg/mg 10-20 [facility] - Hematology and Cell countsOrdered By: Danielle Johnson on 06-28-2023 Erythrocyte distribution width (RBC) [Entitic vol] 38.7 fL 35.1-43.9 [facility] Erythrocyte distribution width (RBC) [Ratio] 12.4 % 11.6-14.6 [facility] Immature granulocytes/100 WBC (Bld) 0.300 % 0.0-0.9 [facility] Comment on above: IG% - Immature Granu locytes (promyelocytes, myelocytes and metamyelocytes) > 1% indicates that a LEFT SHIFT is Present. MCH (RBC) [Entitic mass] 28.5 pg 27.0-32.0 [facility] Nucleated RBC/100 WBC (Bld) [Ratio] 0 % 0-5 [facility] MCHC Auto (RBC) [Mass/Vol]Or dered By: Danielle Johnson on 06-28-2023 MCHC (RBC) [Mass/Vol] 33.4 g/dL 32-36 [facility] No Panel InformationOrdered By: Danielle Johnson on 06-28-2023 Estimated GFR (MDRD) Amer 97 mL/min >60 [facility] Comment on above: GFR Calc Estimated GFR (MDRD) Non-Af Amer 80 mL/min >60 [facility] Comment on above: Non- GFR Calc Vitamin D 25-Hydroxy 33.8 ng/mL [facility] Comment on above: Vitamin D 25(OH) Sta tus Range Deficiency <20 ng/mL (50nmol/L) Insufficiency 20 - 30 ng/mL (50 - 75 nmol/L) Sufficiency 30 - 100 ng/mL (75 - 250 nmol/L) Toxicity >100 ng/mL (>250 nmol/L) Platelets bldOrdered By: Jason Johnson on 06-28-2023 Platelets (Bld) [#/Vol] 214 10*3/uL 150-450 [facility] Serum or plasma albumin peter urement (mass/volume)Ordered By: Danielle Johsnon on 06-28-2023 Albumin [Mass/Vol] 4.1 g/dL 3.2-5.0 [facility] Serum or plasma albumin/glob ulin mass ratioOrdered By: Danielle Johnson on 06-28-2023 Albumin/Globulin [Mass ratio] 1.2 {ratio} 0.9-2.4 [facility] Serum or plasma calcium peter urement (mass/volume)Ordered By: Danielle Johnson on 06-28-2023 Calcium [Mass/Vol] 8.8 mg/dL 8.5-10.1 [facility] Serum or plasma cholesterol in HDL measurement (mass/volume)Ordered By: Danielle Johnson on 06-28-2023 Cholesterol in HDL [Mass/Vol] 44 mg/dL >40 [facility] Comment on above: The drugs N-Acetylcy steine and Metamizole may falsely depress this assay. Reference Range HDL <40 mg/dL Low HDL Cholesterol HDL >or= 60 mg/dL High HDL Cholesterol Serum or plasma cholesterol in VLDL measurement (mass/volume)Ordered By: Danielle Johnson on 06-28-2023 Cholesterol in VLDL [Mass/Vol] 50 mg/dL 5-40 [facility] Serum or plasma creatinine m easurement (mass/volume)Ordered By: Danielle Johnson on 06-28-2023 Creatinine [Mass/Vol] 1.06 mg/dL 0.70-1.30 [facility] Comment on above: The validity of the calculated GFR & GFRAA in patients over 70 years has not been determined. Clinical correlation is essential. Serum or plasma low density lipoprotein (LDL) cholesterol measurement (mass/volume)Ordered By: Danielle Johnson on 06-28-2023 Cholesterol in LDL [Mass/Vol] 113 mg/dL 0-130 [facility] Serum or plasma urea nitroge n measurement (mass/volume)Ordered By: Danielle Johnson on 06-28-2023 Urea nitrogen [Mass/Vol] 16 mg/dL 7-18 [facility] Thin prep Papanicolaou smear with manual screeningOrdered By: Danielle Johnson on 06-28-2023 Thin prep Papanicolaou smear with manual screening 19 U/L 15-37 [facility] Thin prep Papanicolaou smear with manual screening 4 5-15 [facility] COon 10-04-2019 Carbon Monoxide Level See Comments Normal A [facility] ([place]) Comment on above: Result Comment: See separate report. Called result to CherylGerald in ER @20:14 10/03/19 ED Performed By: #### C O #### [place] [address] [address] Vital Signs Date Time Vital Sign Value Performing Clinician Kenneth marroquin 01-29-2025 09:04-0400 Body height 182.[address] Danielle Johnson MD Work Phone: [facility] 01-29-2025 09:04-0400 Body mass index (BMI) [Ratio] 27.3 kg/m2 Dr. Danielle Johnson MD Work Phone: [facility] 01-29-2025 09:04-0400 Body temperature 97.8 [degF] Dr. Dnaielle Johnson MD Work Phone: [facility] 01-29-2025 09:04-0400 Body weight 91.[address] Danielle Johnson MD Work Phone: [facility] 01-29-2025 09:04-0400 Diastolic blood pressure 82 mm[Hg] Dr. Danielle Johnson MD Work Phone: [facility] 01-29-2025 09:04-0400 Heart rate 57 /min Dr. Danielle Johnson MD Work Phone: [facility] 01-29-2025 09:04-0400 Respiratory rate 18 /min Dr. Danielle Johnson MD Work Phone: [facility] 01-29-2025 09:04-0400 SaO2% (BldA) [Mass fraction] 97 % Dr. Danielle Johnson MD Work Phone: [facility] 01-29-2025 09:04-0400 Systolic blood pressure 128 mm[Hg] Dr. Danielle Johnson MD Work Phone: [facility] 05-24-2023 09:37-0400 Body height 182.[address] Darnell [facility] 05-24-2023 09:37-0400 Body mass index (BMI) [Ratio] 27.2 kg/m2 Dr. Darnell [facility] 05-24-2023 09:37-0400 Body temperature 98.2 [degF] Dr. Darnell [facility] 05-24-2023 09:37-0400 Body weight 91.[address] Darnell [facility] 05-24-2023 09:37-0400 Diastolic blood pressure 82 mm[Hg] Dr. Darnell [facility] 05-24-2023 09:37-0400 Heart rate 68 /min Dr. Darnell [facility] 05-24-2023 09:37-0400 Respiratory rate 18 /min Dr. Darnell [facility] 05-24-2023 09:37-0400 SaO2% (BldA) [Mass fraction] 99 % Dr. Darnell [facility] 05-24-2023 09:37-0400 Systolic blood pressure 116 mm[Hg] Dr. Darnell [facility] Encounters Encounter Date Encounter Type Care Provider Facility Start: 06-21-2025 ambulatory Danielle Woodylay Facility :[facility] Start: 06-21-2025 End: 06-21-2025 ambulatory Danielle Woodylay Facility:[facility] Start: 02-08-2025 Encounter for genera l adult medical examination without abnormal findings Danielle Woodylay [facility] Start: 02-02-2025 End: 02-02-[address] Danielle Johnson MD Work Phone: [facility] Work Phone: Start: 02-02-2025 End: 02-02-[address] Danielle Johnson MD -Laboratory [facility] Start: 02-02-2025 End: 02-02-2025 ambulatory Danielle Johnson Facility:[facility] Start: 01-29-2025 End: 01-29-[address] Danielle Johnson MD -[facility] Work Phone: Start: 01-29-2025 End: 01-29-[address] Danielle Johnson MD Work Phone: [facility] Work Phone: Start: 06-28-2023 End: 06-28-[address] Mann Chadwick [facility] Work Phone: Start: 06-28-2023 End: 06-28-[address] Mann Chadwick [facility], [place] Start: 05-24-2023 End: 05-24-[address] Mann Chadwick [facility] Work Phone: Start: 03-30-2022 End: 03-30-2022 Patient encounter procedure [facility], [place] Procedures Date Procedure Procedure Detail Performing Clinician Start: 02-02-2025 Vitamin D, 25-hydrox y measurement Dr. Danielle Johnson MD Work Phone: Comment on above: Vitamin D StatusDefi ciency: <20 ng/mL (50nmol/L)Insufficiency: 20-30 ng/mL (50-75 nmol/L)Sufficiency: 30-100 ng/mL (75-250 nmol/L)Toxicity: >100 ng/mL (>250 nmol/L) Start: 03-30-2022 Radiography of ankle Plan of Treatment Date Care Activity Detail Author Start: 01-29-2025 Patient referral [facility] Work Phone: CBC W Auto Different ial panel - Blood [facility] Comprehensive metabo lic 1999 panel - Serum or Plasma [facility] Lipid 1996 panel - S wicho or Plasma [facility] Patient referral [facility] Work Phone: Vitamin D, 25-hydrox y measurement [facility] Immunizations Immunization Date Immunization Notes Care Provider Fa cility 05-24-2023 influenza, injectabl e, quadrivalent, preservative free Dr. Darnell [facility] 09-26-2021 [facility] Covid (Pfizer) [facility]ell [facility] 12-09-2020 Covid (Pfizer) Dr. Darnell [facility] 04-06-2018 tetanus toxoid, redu rochelle diphtheria toxoid, and acellular pertussis vaccine, adsorbed [facility] 09-13-2006 tetanus toxoid, redu rochelle diphtheria toxoid, and acellular pertussis vaccine, adsorbed Dr. Darnell [facility] 10-27-2005 meningococcal polysaccharide (groups A, C, Y and W-135) diphtheria toxoid conjugate vaccine ([facility]P) [facility] 10-27-[address] Darnell [facility] 10-27-[address] [facility] 10-26-2005 hepatitis A vaccine, pediatric/adolescent dosage, [address] Mann Chadwick [facility] 09-10-1999 hepatitis A vaccine, pediatric/adolescent dosage, [address] Darnell [facility] 09-10-1999 poliovirus vaccine, inactivated Dr. Darnell [facility] Payers Date Payer Category Payer Self-pay [id number] 2024 Unknown [id number] Unknown [id number] Unknown [id number] Unknown [id number] Unknown [id number] Social History Date Type Detail Facility Start: 10-10-2018 End: 05-20-2023 Tobacco smoking status NHIS Unknown if ever smoked [facility] Start: 1975 Sex Assigned At Male [facility] Start: 01-29-2025 Tobacco smoking stat us LAIS Never smoked tobacco (finding) [facility] Medical Equipment Procedure Code Equipment Code Equipment [...] REV CRV DEL SYS FDA Start: 07-20-2018 Evaluation note 01-29-2025 Note Date & Type Note Facility 01-29-2025 Evaluation note Diagnosis Onset Date Resolution Screening for colon cancer noneactive January 29, 2025 9:00am Overweight (BMI 25.0-29.9) noneactive January 29, 2025 9:00am Annual physical exam noneactive January 29, 2025 9:00am Mixed hyperlipidemia noneactive January 29, 2025 9:00am Anxiety and depression noneactive Ju 2024 9:00am Vitamin D deficiency noneactive January 29, 2025 9:00am [facility] Work Phone: Chief complaint+Reason for visit Narrative Note Date & Type Note Facility Chief complaint+Reason for visit Narrative Reason for Visit Anxiety Immunization due Overweight (BMI 25.0-29.9) [facility] Work Phone: Evaluation note Note Date & Type Note Facility Evaluation note No assessment information availa ble [facility] Work Phone: Evaluation note Note Date & Type Note Facility Evaluation note Diagnosis Onset Date Anxiety acute Immunization due noneactive Overweight (BMI 25.0-29.9) n oneactive [facility] Work Phone: Evaluation note Note Date & Type Note Facility Evaluation note Diagnosis Onset Date Resolution Anxiety acute January 29 9:00am Screening for colon cancer noneactive January 29, 2025 9:00am Overweight (BMI 25.0-29.9) noneactive January 29, 2025 9:00am Annual physical exam noneactive January 29, 2025 9:00am Mixed hyperlipidemia noneactive January 29, 2025 9:00am Vitamin D deficiency noneactive January 29, 2025 9:00am [facility] Work Phone: Hospital Discharge instructions Note Date & Type Note Facility Hospital Discharge instructions Ambulatory OrdersGeneral Surgery Location: None Selected [facility] Work Phone: Reason for referral (narrative) Note Date & Type Note Facility Reason for referral (narrative) No reason for referral information available [facility] Work Phone: Summary Purpose Family History No [...] Will Yes July 18 4:53pm Power of Advertising Material Distributor Yes July 18, 2018 4:53pm Advance Directive Response Recorded Date/ Time Living Will Yes July 18 3:53pm Power of Advertising Material Distributor Yes July 18, 2018 3:53pm Advance Directive Response Recorded Date/ Time Living Will Yes July 18 4:53pm Do you have a Healthcare Power of Advertising Material Distributor? Yes July 18, 2018 4:53pm Chief Complaint and Reason for Visit Chief Complaint Admit Date yearly January 29, 2025 9:00 am Reason for Visit Admit Date Screening for colon cancer January 29 9:00am Overweight (BMI 25.0-29.9) January 29 9:00am Annual physical exam January 29, 2025 9:0 0am Mixed hyperlipidemia January 29, 2025 9:0 0am Anxiety and depression January 29, 2025 9 :00am Vitamin D deficiency January 29, 2025 9:0 0am Reason for Visit Admit Date Anxiety January [...] section and content) DATE CREATED AUTHOR 10/04/2019 [facility] ([place]) DATE CREATED AUTHOR AUTHOR'S ORGANIZ ATION 06/23/2025 [facility] Goals (unrecognized section and [...] January 29, 2025 End: January 29, 2025 Team Status: Inactive Member Role Status Dates Dr. Danielle Johnson MD Primary Care Provider Active Start: February 02, 2025 End: February 02, 2025 Dr. Danielle Johnson MD Attending Provider Active Start: February 02, 2025 End: February 02, 2025 Dr. Danielle Johnson MD Referring Provider Active Start: February 02, 2025 End: February 02, 2025 FOR RECORDS PERTAINING TO PATIENTS WHO [...] BE BASED ON THE PRIMARY CLINICAL RECORDS. [employer] provides no warranty or guarantee of the accuracy or completeness of information in this document.
--- NOTE | 2025-08-11 00:32 | EDS_ITS ---
HPI History of Present Illness Chief Complaint: Dental Narrative Narrative: Patient was seen and examined after presenting to ED for dental pain he had previous root canal of tooth #3 and has a crown over top of it but started having pain with that he was already started on amoxicillin he has been taking 800 mg of ibuprofen 4 times a day and 500 mg of acetaminophen he actually had a dental block performed earlier in the day states that it only lasted him about 45 minutes. He actually has an upcoming appointment with an oral surgeon on Wednesday. He also states that he had a few tablets of oxycodone that was prescribed but even that provided almost no relief. [facility] Medical History Seasonal allergies Anxiety Depression Migraine Skull fracture Home Medications ?Medication ?Instructions ?Recorded ?Last Taken ?Type cholecalciferol (vitamin D3) 25 25 mcg PO DAILY #1 cap 06/28/23 Unknown Rx mcg (1,000 unit) capsule sertraline 25 mg tablet (Zoloft) 12.5 mg (1/2 x 25 mg) PO QDAY #45 04/23/25 Unknown Rx tabs Allergy/AdvReac Type Severity Reaction Status Date / Time animal dander Allergy Intermediate Other Verified 08/10/25 23:50 Family History Father Hypertension Grandfather Colon cancer Uncle Cancer PROSTATE Sister Esophageal cancer Surgical History History of lateral meniscus repair of left knee Social History adopted: No household members: spouse and children number of children: 4 current occupational status: 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 pets and animals: Yes (1) pets and animals: dog(s) sexually active: Yes Smoking Status: Never smoker Electronic Cigarette Use: not used second hand exposure: No alcohol intake: current alcohol intake frequency: holidays/special occasions only Alcohol type: beer substance use type: does not use caffeine: Yes (1) Type: coffee what type of physical activity do you participate in: running frequency: 3-4 times per week duration: 30-45 minutes/day seatbelt use: always do you feel safe at home: Yes ROS ROS ED ROS Narrative Pertinent Positives: Dental pain Pertinent Negatives: Fevers redness swelling The remainder of review of systems negative unless otherwise stated in the HPI above. Systems reviewed including constitutional, psychiatric, cardiovascular, respiratory, integument, HENT, gastrointestinal. EXAM Physical Exam Narrative Exam Narrative: Patient is afebrile hemodynamically stable does not appear toxic or in distress oropharynx is without evidence of any sort of tonsillar enlargement lingual or sublingual edema or periapical abscess or any other abscess formation that is visible or easily drainable. There is no cellulitic appearance inside the mouth no evidence of trench mouth normal range of motion of head and neck Const Vital Signs: 08/10/25 23:49 Temperature 97.2 F L Temperature Source Temporal Pulse Rate 60 Respiratory Rate 14 Blood Pressure 156/88 H Blood Pressure Mean 110 Pulse Ox 98 Oxygen Delivery Method Room Air MDM MDM MDM Narrative Medical decision making narrative: Nursing notes, triage notes, available previous documentation, and vital signs were reviewed. Any discrepancies noted were addressed. Differential Diagnoses: No periapical abscess no evidence of trench mouth this is not Dillon's angina no evidence of angioedema not a peritonsillar abscess or deep space neck infection or meningitis Previous Documentation Reviewed: None available or applicable at this time. ED Course: Patient presenting with symptoms as described above he is already on the right medications I did mention that I would actually switch the Tylenol from 500 mg to 1000 mg 4 times a day he has already had a dental block earlier today that was minimally successful and he has an upcoming appointment unfortunately at this point in time labs and imaging would not really assist us any further dental pain is fairly excruciating at baseline with minimal relief until it is actually intervened upon by a dentist or oral surgeon fortunately he has had upcoming appointment so return precautions follow-up recommendations provided patient stable for discharge. This note was made utilizing voice recognition software. All attempts were made to correct spelling or other errors prior to note completion. However, due to the fast-paced nature of emergency medicine, some errors may still be present. Discharge Plan Triage Chief Complaint: Dental ED Provider: Christiano Vazquez Dx/Rx/DC Orders Clinical Impression: Pain due to dental caries Instructions: ED Dental Pain Prescriptions: No Action cholecalciferol (vitamin D3) 25 mcg (1,000 unit) capsule 25 mcg PO DAILY Qty: 1 0RF sertraline [Zoloft] 25 mg tablet 12.5 mg PO QDAY Qty: 45 1RF Primary Care Provider: Danielle Johnson Referrals: Danielle Johnson MD [Primary Care Provider, Internal Medicine] Activity Restrictions/Additional Instructions: I recommend that you increase the acetaminophen from 500 mg to 1000 mg. So I would take acetaminophen 1000 mg 3-4 times a day along with 600 to 800 mg of ibuprofen 3-4 times a day and I would take them together. If you have swelling inside your mouth difficulty breathing worsening of your overall condition please return to the emergency department otherwise follow-up with your dentist or oral surgeon Print Language: [place] Disposition Disposition: Home, Self Care
[2025-08-11 00:43] VITALS: BP 156/88; PULSE 60; RESP 14; TEMP 36.2; O2SAT 98
== END 2025-08-11 00:43 | disposition home or self-care (01) ==
PROVIDERS: Emergency Provider Specialist/Technologist Athletic Trainer; PCP Internal Medicine; Visit Provider Specialist/Technologist Athletic Trainer
DX: K02.9 Dental caries, unspecified (principal); K08.89 Other specified disorders of teeth and supporting structures; F41.9 Anxiety disorder, unspecified; F32.A Depression, unspecified; Z79.899 Other long term (current) drug therapy
CPT/HCPCS: 99282